=== PATIENT | female | born 1930 | race Caucasian/White ===

== ENCOUNTER 2016-11-08 14:13 | Emergency (ER) | payer OTHER ==
[~2016-11-08] VITALS: Ht 152.4 cm; Wt 44.5 kg
--- NOTE | 2016-11-08 14:15 | NUR ---
Patient to ER bed 05 to gown for evaluation. Side rails up.
[2016-11-08] MEDS ORDERED: NACL 0.9% 1,000 ML IV SCH (14:21)
[2016-11-08 14:24] VITALS: PULSE 85; RESP 18; TEMP 98.3; O2SAT 97
[2016-11-08] MEDS ORDERED: KETOROLAC TROMETHAMINE 15 MG VIAL IVP ONE (14:30)
--- NOTE | 2016-11-08 14:30 | NUR ---
ER at bedside examining patient.
--- NOTE | 2016-11-08 14:35 | NUR ---
PT AAO C/O EXCAERBATION CHRONIC KNEE. PT DENIES FALL OR TRAUMA PER REPORT. PT HAS NO KNEE SWELLING.
[2016-11-08 15:10] LABS: BASOPHILS # (AUTO) 0.1 K/uL (0.0-0.2); BASOPHILS % (AUTO) 0.7 % (0.0-2.0); EOSINOPHILS % (AUTO) 0.2 % (0.0-4.0); HEMATOCRIT 36.6 % (36-48); HEMOGLOBIN 12.1 g/dL (12.0-16.0); LYMPHOCYTES # (AUTO) 0.8 K/uL (1.0-5.5); LYMPHOCYTES % (AUTO) 8.5 % (20.5-51.5); MEAN CORPUSCULAR HEMOGLOBIN 32 pg (27-31); MEAN CORPUSCULAR HGB CONC 33 % (32-36); MEAN CORPUSCULAR VOLUME 95 fL (79.0-98.0); MONOCYTES # (AUTO) 0.4 K/uL (0.0-1.0); MONOCYTES % (AUTO) 4.1 % (1.7-9.3); NEUTROPHILS # (AUTO) 8.7 K/uL (1.8-7.7); NEUTROPHILS % (AUTO) 86.5 % (40.0-70.0); PLATELET COUNT (AUTO) 304 K/uL (130-430); RED BLOOD CELL COUNT(AUTO) 3.85 MIL/uL (4.2-6.2)
[2016-11-08 15:15] LABS: ANION GAP 4 (5-15); CALCIUM 9.4 mg/dL (8.4-11.0); CHLORIDE 101 mmol/L (98-107); CREATININE 0.36 mg/dL (0.55-1.30); GLUCOSE 90 mg/dL (70-99); POTASSIUM 4.9 mmol/L (3.5-5.1); PROTHROMBIN TIME 10.4 SECS (9.5-12.5); SODIUM SERUM 131 mmol/L (136-145); UREA NITROGEN, BLOOD 16 mg/dL (8-21)
[2016-11-08 15:20] LABS: ALANINE AMINOTRANSFERASE 30 U/L (12-78); ASPARTATE AMINOTRANSFERASE 36 U/L (10-37); TOTAL BILIRUBIN 0.7 mg/dL (0.0-1.0); TOTAL PROTEIN, SERUM 6.1 g/dL (6.4-8.3); URIC ACID 1.7 mg/dL (2.4-7.0)
--- NOTE | 2016-11-08 15:33 | NUR ---
PT TOLERATED TX WELL.
--- NOTE | 2016-11-08 16:05 | NUR ---
PT OFFERED ADMISSION.PT REFUSED X 2.PT STS" I'LL DO BETTER AT HOME. " PT TO RECEIVED GIUSEPPE WRAP PRIOR TO D/C.
[2016-11-08 16:37] VITALS: BP 152/93; PULSE 76; RESP 18; TEMP 98.4; O2SAT 95
--- NOTE | 2016-11-08 16:50 | NUR ---
Patient given written and verbal discharge instructions and verbalizes understanding. ER MD discussed with patient the results and treatment provided. Patient in stable condition. ID arm band removed. IV catheter removed intact and dressing applied, no active bleeding. No Rx given. Patient educated on pain management and to follow up with PMD. Pain Scale 0/10. Opportunity for questions provided and answered.
[2017-01-18] MEDS ORDERED: LEVO100T9 PO (23:52)
[2017-01-18] MEDS ORDERED: RANI-362 PO (23:52)
[2017-01-18] MEDS ORDERED: FLUT1DIS INH (23:52)
[2017-01-18] MEDS ORDERED: ALBU0.63 NEB (23:52)
[2017-01-18] MEDS ORDERED: ALBU90AE IH (23:52)
== END 2016-11-08 16:37 | disposition home or self-care (01) ==
LOC: SED 14:13
DX: S83.8X2A Sprain of other specified parts of left knee, initial encounter (principal); J45.909 Unspecified asthma, uncomplicated; E11.9 Type 2 diabetes mellitus without complications; E03.9 Hypothyroidism, unspecified; X58.XXXA Exposure to other specified factors, initial encounter; Y93.89 Activity, other specified; Y92.89 Other specified places as the place of occurrence of the external cause; Y99.8 Other external cause status
CPT/HCPCS: 36415; 73564; 80053; 83605; 84550; 85025; 85610; 85730; 87040; 93005; 96361; 96374; 99285; J1885; J7030

== ENCOUNTER 2016-11-18 18:42 | Inpatient (IN) | payer OTHER ==
[~2016-11-18] VITALS: Ht 149.9 cm; Wt 38.6 kg
[2016-11-18 18:42] VITALS: BP 88/50; PULSE 70; RESP 22; TEMP 97.8; O2SAT 95
--- NOTE | 2016-11-18 18:42 | NUR ---
Arrived via [facility] ambulance for abd distention, vomiting, abd is grossly distended. Placed in room 3 . Placed on cardiac sonographer, blood pressure machine and pulse oximeter. To gown for exam. Side rails up. Report given to Ashley MEJIA.
[2016-11-18] MEDS ORDERED: NACL 0.9% 1,000 ML IV SCH (18:55)
[2016-11-18] MEDS ORDERED: cefTRIAXone 1 GM IVPB PREMIX 50 ML IV ONE (19:00)
[2016-11-18] MEDS ORDERED: PIPERACILLIN/TAZO 3.375 GM in NS 50 ML IV ONE (19:00)
[2016-11-18] MEDS ORDERED: KETOROLAC TROMETHAMINE 30 MG VIAL IVP ONE (19:00)
[2016-11-18] MEDS ORDERED: NACL 0.9% 1,000 ML IV ONE (19:00)
[2016-11-18] MEDS ORDERED: ONDANSETRON HCL 4 MG/2 ML VIAL IVP ONE (19:00)
--- NOTE | 2016-11-18 19:00 | NUR ---
ER Dr. Kim at bedside examining patient.
--- NOTE | 2016-11-18 19:10 | NUR ---
Pt states that she has been having 10/10 abd pain for one day with N/V. Pt states she has not have a BM "for awhile that I cannot remember." Pt abd is distended and tender. Pt is guarding abd. Bowel sounds noted 4/4. VSS. Lung sounds clear in all lobes. Will continue to monitor via case monitor. No other injuries or complaints mentioned/noted.
[2016-11-18 19:17] LABS: BASOPHILS # (AUTO) 0.1 K/uL (0.0-0.2); BASOPHILS % (AUTO) 1.2 % (0.0-2.0); EOSINOPHILS % (AUTO) 0.5 % (0.0-4.0); HEMATOCRIT 36.5 % (36-48); HEMOGLOBIN 11.9 g/dL (12.0-16.0); LYMPHOCYTES # (AUTO) 0.6 K/uL (1.0-5.5); LYMPHOCYTES % (AUTO) 14.1 % (20.5-51.5); MEAN CORPUSCULAR HEMOGLOBIN 31 pg (27-31); MEAN CORPUSCULAR HGB CONC 33 % (32-36); MEAN CORPUSCULAR VOLUME 95 fL (79.0-98.0); MONOCYTES % (AUTO) 1.1 % (1.7-9.3); NEUTROPHILS # (AUTO) 3.6 K/uL (1.8-7.7); NEUTROPHILS % (AUTO) 83.1 % (40.0-70.0); PLATELET COUNT (AUTO) 388 K/uL (130-430); RED BLOOD CELL COUNT(AUTO) 3.85 MIL/uL (4.2-6.2); RED CELL DISTRIBUTION WIDTH 12.7 % (9.0-15.0); WHITE BLOOD COUNT (AUTO) 4.4 K/uL (4.8-10.8)
[2016-11-18 19:27] LABS: ANION GAP 5 (5-15); CALCIUM 10.4 mg/dL (8.4-11.0); CHLORIDE 99 mmol/L (98-107); CREATININE 0.55 mg/dL (0.55-1.30); GLUCOSE 137 mg/dL (70-99); INR 0.9 (0.8-1.2); POTASSIUM 3.6 mmol/L (3.5-5.1); SODIUM SERUM 130 mmol/L (136-145); UREA NITROGEN, BLOOD 19 mg/dL (8-21)
--- NOTE | 2016-11-18 19:30 | NUR ---
Blood pressure within normal limits. Dr. Kim and Dr. Seo made aware.
--- NOTE | 2016-11-18 19:30 | NUR ---
Scanner unavailable. Full name, date of , and allergies confirmed before medication administration.
[2016-11-18 19:31] LABS: ALANINE AMINOTRANSFERASE 24 U/L (12-78); AMYLASE 26 U/L (0-100); ASPARTATE AMINOTRANSFERASE 20 U/L (10-37); LIPASE 138 U/L (73-393); TOTAL BILIRUBIN 0.4 mg/dL (0.0-1.0); TOTAL PROTEIN, SERUM 5.9 g/dL (6.4-8.3)
[2016-11-18] MEDS ORDERED: PIPERACILLIN/TAZOBACTAM 3.375 GM/VIAL (ZOSYN) IV ONE (19:38)
--- NOTE | 2016-11-18 21:35 | NUR ---
Medication reconciliation completed with information provided by son. Unable to put in due to being locked out from EMR.
--- NOTE | 2016-11-18 21:45 | NUR ---
Patient will be admitted to care of Dr. Goodwin. Admitted to Telemetry unit. Will go to room 135A. Belongings list completed. Summary report printed. Report will be given at bedside.
--- NOTE | 2016-11-18 21:45 | NUR ---
Note marina in ED - 11/19/16 at 0130 by PRISCILA Patient will be admitted to care of Dr. Goodwin. Admitted to Telemetry unit. Will go to room 120A. Belongings list completed. Summary report printed. Report will be given at bedside.
[2016-11-18 22:07] VITALS: BP 88/52; PULSE 76; RESP 16; TEMP 97.4; O2SAT 93
--- NOTE | 2016-11-18 22:07 | NUR ---
Admission Note Received patient from ER with diagnosis of Partial Small Bowel Obstruction. Initial Plan of Care discussed-patient verbalized understanding. Family at bedside. Oriented to room, call light, pain management and safety.
[2016-11-18 22:40] LABS: BILIRUBIN,URINE NEGATIVE (NEGATIVE); BLOOD, URINE NEGATIVE (NEGATIVE); CLARITY/URINE SL CLOUDY (CLEAR); COLOR,URINE YELLOW (YELLOW); GLUCOSE,URINE NEGATIVE (NEGATIVE); KETONES,URINE TRACE (NEGATIVE); LEUKOCYTE ESTERASE ,URINE 1+ (NEGATIVE); NITRITE, URINE NEGATIVE (NEGATIVE); PROTEIN URINE NEGATIVE (NEGATIVE)
[2016-11-18 22:57] LABS: BACTERIA,URINE MODERATE /HPF (None Seen); RBC,URINE 0-3 /HPF (0-3); URINE AMORPHOUS URATE 2+ /HPF (None Seen)
[2016-11-18 22:58] LABS: MUCUS,URINE 2+ /LPF (None Seen)
[2016-11-18] MEDS ORDERED: ONDANSETRON HCL 4 MG/2 ML VIAL IVP PRN (23:15)
[2016-11-18] MEDS ORDERED: KETOROLAC TROMETHAMINE 15 MG VIAL IVP PRN (23:15)
--- NOTE | 2016-11-18 23:21 | NUR ---
Consult Called Reason For Consultation: SOB Person who was person notified: Carson Was consult called:[place] Consulting Physician: Byron Mcgregor Foster Care Case Manager Specialty: taper machine Addendum: 11/18/16 at 2348 by Betty Lawton [place]/ CONSULT WAS NORA
[2016-11-19] VITALS: BP 108/70; PULSE 76; RESP 16; TEMP 97.4; O2SAT 93
--- NOTE | 2016-11-19 00:04 | NUR ---
Consult Called Reason For Consultation: SBO Person who was notified: Was consult called:Y Consulting Physician:Idalmis Resendiz MD (Dr. Benedict chemical radiation technician) Product Director Specialty:GI Product Director
[2016-11-19] MEDS: D5NS 1,000 ML IV SCH ×2 (00:35→17:33)
[2016-11-19] MEDS ORDERED: PIPERACILLIN/TAZOBACTAM 3.375 GM/VIAL (ZOSYN) IV ONE (01:00)
[2016-11-19] MEDS ORDERED: FLUT1DIS INH (01:32)
[2016-11-19] MEDS ORDERED: LEVO100T9 PO (01:32)
--- NOTE | 2016-11-19 01:33 | NUR ---
Medication reconciliation completed with information provided by son. Any prior medication reconciliation on file was reviewed and corrected.
[2016-11-19] MEDS: PIPERACILLIN/TAZO 3.375/DEX-IS 50 ML IV SCH ×4 (02:07→21:18)
--- NOTE | 2016-11-19 02:59 | NUR ---
Consult called: sbo Was consult called: yes Person who was notified: Quin Consulting Physician: Migel Mitchell MD Room Designer Specialty: Ceo And President
[2016-11-19] MEDS: MORPHINE 2 MG/ML INJ. SYRINGE IVP PRN ×2 (03:18→08:17)
[2016-11-19 04:00] VITALS: BP 86/55; PULSE 78; RESP 20; TEMP 99.2; O2SAT 95
--- NOTE | 2016-11-19 04:00 | NUR ---
DOZES ON AND OFF. FORGETFUL AT TIMES. FEELS COLD, WARM BANKETS IN PLACE. SCD'S PUT IN PLACE EARLIER. REPOSITIONED AND TURNED PRN. ORAL CARE GIVEN. PLEASANT.
--- NOTE | 2016-11-19 06:00 | NUR ---
ATTEMPTING TO GET OUT OF BED. NEEDY. SCARED. REASSURED. TUCKED BACK IN BED. THANKFUL.
[2016-11-19 06:46] LABS: BASOPHILS % (AUTO) 0.1 % (0.0-2.0); EOSINOPHILS % (AUTO) 0.3 % (0.0-4.0); HEMATOCRIT 39.4 % (36-48); LYMPHOCYTES # (AUTO) 0.3 K/uL (1.0-5.5); LYMPHOCYTES % (AUTO) 5.6 % (20.5-51.5); MEAN CORPUSCULAR HEMOGLOBIN 32 pg (27-31); MEAN CORPUSCULAR HGB CONC 33 % (32-36); MEAN CORPUSCULAR VOLUME 98 fL (79.0-98.0); MONOCYTES # (AUTO) 0.3 K/uL (0.0-1.0); MONOCYTES % (AUTO) 6.2 % (1.7-9.3); NEUTROPHILS # (AUTO) 4.5 K/uL (1.8-7.7); NEUTROPHILS % (AUTO) 87.8 % (40.0-70.0); PLATELET COUNT (AUTO) 256 K/uL (130-430); RED BLOOD CELL COUNT(AUTO) 4.04 MIL/uL (4.2-6.2); WHITE BLOOD COUNT (AUTO) 5.1 K/uL (4.8-10.8)
[2016-11-19 06:58] LABS: ALANINE AMINOTRANSFERASE 20 U/L (12-78); ALBUMIN 2.3 g/dL (3.4-4.8); ANION GAP 8 (5-15); CHLORIDE 103 mmol/L (98-107); GLUCOSE 85 mg/dL (70-99); SODIUM SERUM 133 mmol/L (136-145); TOTAL BILIRUBIN 0.4 mg/dL (0.0-1.0); TOTAL PROTEIN, SERUM 4.6 g/dL (6.4-8.3); UREA NITROGEN, BLOOD 18 mg/dL (8-21)
[2016-11-19 07:04] LABS: POTASSIUM 4.1 mmol/L (3.5-5.1)
[2016-11-19 07:05] LABS: ASPARTATE AMINOTRANSFERASE 18 U/L (10-37)
[2016-11-19 08:00] VITALS: BP 90/53; PULSE 98; RESP 16; TEMP 98.3; O2SAT 99
[2016-11-19] MEDS: LEVOTHYROXINE SODIUM 0.1 MG VIAL IVP SCH (08:16)
[2016-11-19] MEDS: FAMOTIDINE PF 20 MG/2 ML VIAL IVP SCH ×2 (08:16→21:19)
--- NOTE | 2016-11-19 08:30 | NUR ---
OPENING NOTE: RECEIVED REPORT FROM NIGHT NURSE. PATIENT IS AWAKE AND ALERT. NO S/S OF DISTRESS OR SOB. PATIENT IV IS PATENT AND INFUSING. SCD'S IN PLACE. VITAL SIGNS WNL, ASSESSMENT COMPLETE. PAIN MEDICATION WAS GIVEN. PATIENT EDUCATED ON USING CALL LIGHT FOR ASSISTANCE BEFORE GETTING UP. CALL LIGHT IN REACH, BED IN LOWEST POSITION, AND WILL CONTINUE TO MONITOR.
--- NOTE | 2016-11-19 08:56 | NUR ---
Nutrition Update Silas Scale 15 noted. Pt admitted for partial SBO. Diet: NPO BMI: 17.7 kg/m2 RD to follow per nutrition care standards.
[2016-11-19] MEDS ORDERED: DIATR MEGLU/DIATRIZ SOD 30 ML SOLUTION PO ONE (08:59)
--- NOTE | 2016-11-19 10:00 | NUR ---
NOTE: PATIENT IS RESTING COMFORTABLY IN BED. NO S/S OF DISTRESS OR SOB. PATIENT IS AWAKE AND ALERT. CALL LIGHT IN REACH, BED IN LOWEST POSITION, AND WILL CONTINUE TO MONITOR.
[2016-11-19 10:16] VITALS: Ht 149.9 cm; Wt 38.6 kg
[2016-11-19 12:00] VITALS: BP 103/57; PULSE 80; RESP 15; TEMP 97.8; O2SAT 92
--- NOTE | 2016-11-19 12:00 | NUR ---
NOTE: PATIENT IS RESTING COMFORTABLY IN BED. NO S/S OF DISTRESS OR SOB. PATIENT IS AWAKE AND ALERT, BUT FORGETFUL AT TIMES. FAMILY IS AT BEDSIDE. CALL LIGHT IN REACH, BED IN LOWEST POSITION, AND WILL CONTINUE TO MONITOR.
--- NOTE | 2016-11-19 13:26 | NUR ---
PATIENT TAKEN TO RADIOLOGY
[2016-11-19] MEDS ORDERED: IOHEXOL 100 ML IV ONE (13:39)
--- NOTE | 2016-11-19 13:57 | NUR ---
PATIENT BACK FROM RADIOLOGY. SPOKE WITH DR. Nolan. HE SAID TO CALL HIM WHEN RESULTS OF CT SCAN ARE BACK.
--- NOTE | 2016-11-19 14:16 | NUR ---
NOTES ACCOMPANY PT TO CT SCAN. PT TOLERATED WELL. PT BACK INTO ROOM. IV FLUIDS RESUMED.
--- NOTE | 2016-11-19 15:40 | NUR ---
CRITICAL REPORT INFORMED DR. COLLIER OF BLOOD CULTURE REPORT OF GRAM NEGATIVE RODS. HE ORDERED LEVAQUIN 500 DAILY AND CONSULT FOR ID CONSULT WITH DR. COLIN. ORDERS NOTED AND CARRIED OUT.
--- NOTE | 2016-11-19 15:58 | NUR ---
ID Consult: for Dr. Shook, regarding gram negative rods, ordered by Dr. Ross, spoke with Elizabeth.
[2016-11-19 16:00] VITALS: BP 97/57; PULSE 81; RESP 18; TEMP 98.9; O2SAT 93
--- NOTE | 2016-11-19 16:00 | NUR ---
NOTE: PATIENT IS RESTING COMFORTABLY IN BED. NO S/S OF DISTRESS OR SOB. PATIENT IS AWAKE AND ALERT, WITH FORGETFULLNESS. FAMILY AT BEDSIDE. CALL LIGHT IN REACH, BED IN LOWEST POSITION, AND WILL CONTINUE TO MONITOR.
--- NOTE | 2016-11-19 18:35 | NUR ---
CLOSING NOTE: PATIENT IS RESTING COMFORTABLY IN BED. DR. PRATT MAKING ROUNDS. PATIENT IS AWAKE AND ALERT, WITH CONFUSION. CALL LIGHT IN REACH, BED IN LOWEST POSITION, AND WILL GIVE REPORT TO NIGHT NURSE.
--- NOTE | 2016-11-19 20:00 | NUR ---
ROUNDS PATIENT IN BED, AWAKE, ALERT, CONFUSED, VITALS STABLE, NO SIGNS OF ANY PAIN AND DISCOMFORT NOTED AT THIS TIME. ASSESSMENT DONE AND DOCUMENTED. SEE FLOWSHEET. NEEDS ATTENDED TO. PULLED OUT HER IV, REINSERTED TO HER RIGHT FOREARM G. 22. SAFETY AND FALL PRECAUTION MEASURES IN PLACED. BED IN LOW AND LOCKED POSITION. BED ALARM ON. CALL LIGHT PLACED WITH PATIENT.
--- NOTE | 2016-11-19 20:50 | NUR ---
DO. JAZLYN HOBSON SAW PATIENT WITH NEW ORDERS, WILL CONTINUE TO MONITOR.
[2016-11-19] MEDS ORDERED: LEVOFLOXACIN 500 MG/D5W 100 ML IV ONE (21:00)
[2016-11-19] MEDS ORDERED: BISACODYL 10 MG/SUPPOSITORY RC ONE (21:15)
[2016-11-20] VITALS: BP 100/63; PULSE 84; RESP 19; TEMP 98.8; O2SAT 95
--- NOTE | 2016-11-20 00:10 | NUR ---
PATIENT RESTING: Patient resting quietly. No acute distress noted. Vital signs within normal range.
--- NOTE | 2016-11-20 02:00 | NUR ---
ROUNDS PATIENT ASLEEP, NO SOB NOTED, WILL CONTINUE TO MONITOR.
[2016-11-20] MEDS: PIPERACILLIN/TAZO 3.375/DEX-IS 50 ML IV SCH ×4 (02:32→20:46)
--- NOTE | 2016-11-20 04:15 | NUR ---
PATIENT RESTING: Patient resting quietly. No acute distress noted. Vital signs within normal range.
[2016-11-20 04:19] VITALS: BP 91/54; PULSE 76; RESP 16; TEMP 98.5; O2SAT 94
--- NOTE | 2016-11-20 06:50 | NUR ---
CLOSING NOTES PATIENT AWAKE, VITALS STABLE, SAFETY MEASURES MAINTAINED, CALL LIGHT WITHIN REACH. WILL ENDORSE TO INCOMING SHIFT NURSE.
[2016-11-20 08:00] VITALS: BP 118/67; PULSE 87; RESP 18; TEMP 98.4; O2SAT 91
--- NOTE | 2016-11-20 08:00 | NUR ---
initial notes rec patient awake with periods of confusion with hob elevated. ivf infusing well on the r forearm. no infiltration noted. uses the commode at intervals and voiding freely . denies any abd pain at this time. pt close to the nurses station to monitor for fall. call light within reached. no sob noted.
[2016-11-20] MEDS: FAMOTIDINE PF 20 MG/2 ML VIAL IVP SCH ×2 (09:27→23:16)
[2016-11-20] MEDS: LEVOTHYROXINE SODIUM 0.1 MG VIAL IVP SCH (09:27)
[2016-11-20] MEDS: D5NS 1,000 ML IV SCH ×2 (09:28→13:45)
--- NOTE | 2016-11-20 10:00 | NUR ---
rounds seen by dr mosley and spoke with pt's son as well. pt in bed and not trying to get oob at this time.
--- NOTE | 2016-11-20 11:59 | NUR ---
rounds seen by dr martin and krista rizo with pt's son. no sob noted.
[2016-11-20 12:07] VITALS: BP 101/63; PULSE 67; RESP 17; TEMP 97.9; O2SAT 95
[2016-11-20] MEDS ORDERED: MAGNESIUM CITRATE 300 ML ORAL SOLUTION PO ONE (12:15)
[2016-11-20] MEDS ORDERED: GASTROGRAFIN 120 ML ONE (13:09)
--- NOTE | 2016-11-20 14:00 | NUR ---
rounds sleeping when rounds made.patient close to the nurses station. call light within reached.
[2016-11-20 16:52] VITALS: BP 110/71; PULSE 72; RESP 17; TEMP 98; O2SAT 95
--- NOTE | 2016-11-20 17:00 | NUR ---
rounds assisted to the br at intervals. bed alarmed is on. no sob noted.
--- NOTE | 2016-11-20 19:00 | NUR ---
closing notes seen by dr grossman and informed re small bowel follow through test. ludwin office machine technician will call if xray is completed then to give mg citrate. pt pulled out iv and will endorsed to [facility] nurse. pt was out back in bed , bed in low position and side rails up and locked.
--- NOTE | 2016-11-20 19:50 | NUR ---
ROUNDS PATIENT IN BED, AWAKE, ALERT, CONFUSED, VITALS STABLE. NO PAIN AND DISCOMFORT AT THIS TIME. ASSESSMENT DONE AND DOCUMENTED. SEE FLOWSHEET. NEEDS ATTENDED TO. SAFETY AND FALL PRECAUTION MEASURES IN PLACED. BED IN LOW AND LOCKED POSITION. BED ALARM ON. CALL LIGHT PLACED WITH PATIENT. WILL CONTINUE TO MONITOR.
--- NOTE | 2016-11-20 20:30 | NUR ---
MEDICATION DUE MEDICATION, MAGNESIUM CITRATE, GIVEN ORDERED AND TOLERATED WELL. WILL CONTINUE TO MONITOR.
[2016-11-20] MEDS: LEVOFLOXACIN 250 MG/D5W 50 ML IV SCH (23:17)
[2016-11-21 00:26] VITALS: BP 123/76; PULSE 79; RESP 17; TEMP 98; O2SAT 96
--- NOTE | 2016-11-21 02:53 | NUR ---
NOTES PATIENT ALWAYS TRYING TO GET OUT OF BED, TRANSFERRED TO ROOM 121B, SITTER AT THE BEDSIDE. WILL CONTINUE TO MONITOR.
[2016-11-21] MEDS: PIPERACILLIN/TAZO 3.375/DEX-IS 50 ML IV SCH ×3 (03:48→14:00)
--- NOTE | 2016-11-21 04:24 | NUR ---
PATIENT RESTING: Patient resting quietly. No acute distress noted. Vital signs within normal range.
[2016-11-21 04:55] VITALS: BP 140/76; PULSE 63; RESP 16; TEMP 97.1; O2SAT 94
--- NOTE | 2016-11-21 05:19 | NUR ---
MD DODD CALLED [facility] AT SPOKE WITH DR.AZAB GUERRERO [employer] WELF[employer] ELIGIBILITY WORKER.
--- NOTE | 2016-11-21 06:38 | NUR ---
CLOSING NOTES PATIENT AWAKE, VITALS STABLE, ALL NEEDS ATTENDED TO. HAD ANOTHER BM, MADE CLEAN AND COMFORTABLE. SITTER AT THE BEDSIDE FOR SAFETY. SAFETY MEASURES MAINTAINED. WILL ENDORSE TO INCOMING SHIFT NURSE.
[2016-11-21 07:09] LABS: BASOPHILS % (AUTO) 0.2 % (0.0-2.0); EOSINOPHILS # (AUTO) 0.1 K/uL (0.0-0.4); EOSINOPHILS % (AUTO) 0.9 % (0.0-4.0); HEMATOCRIT 33.4 % (36-48); HEMOGLOBIN 11.2 g/dL (12.0-16.0); LYMPHOCYTES # (AUTO) 0.6 K/uL (1.0-5.5); LYMPHOCYTES % (AUTO) 5.6 % (20.5-51.5); MEAN CORPUSCULAR HEMOGLOBIN 32 pg (27-31); MEAN CORPUSCULAR HGB CONC 34 % (32-36); MEAN CORPUSCULAR VOLUME 95 fL (79.0-98.0); MONOCYTES # (AUTO) 0.1 K/uL (0.0-1.0); MONOCYTES % (AUTO) 1.3 % (1.7-9.3); NEUTROPHILS # (AUTO) 9.1 K/uL (1.8-7.7); PLATELET COUNT (AUTO) 246 K/uL (130-430); RED BLOOD CELL COUNT(AUTO) 3.52 MIL/uL (4.2-6.2); RED CELL DISTRIBUTION WIDTH 13.3 % (9.0-15.0); WHITE BLOOD COUNT (AUTO) 9.9 K/uL (4.8-10.8)
[2016-11-21 07:37] LABS: ALANINE AMINOTRANSFERASE 17 U/L (12-78); ANION GAP 4 (5-15); ASPARTATE AMINOTRANSFERASE 14 U/L (10-37); CALCIUM 9.2 mg/dL (8.4-11.0); CHLORIDE 106 mmol/L (98-107); CREATININE 0.33 mg/dL (0.55-1.30); GLUCOSE 114 mg/dL (70-99); SODIUM SERUM 136 mmol/L (136-145); TOTAL BILIRUBIN 0.4 mg/dL (0.0-1.0); TOTAL PROTEIN, SERUM 4.6 g/dL (6.4-8.3); UREA NITROGEN, BLOOD 12 mg/dL (8-21)
[2016-11-21 07:42] LABS: POTASSIUM 1.9 mmol/L (3.5-5.1)
[2016-11-21 08:00] VITALS: BP 126/74; PULSE 71; RESP 18; TEMP 97.4; O2SAT 99
[2016-11-21] MEDS ORDERED: POTASSIUM CHLORIDE 60 MEQ in NS 500 ML IV ONE (08:00)
[2016-11-21] MEDS ORDERED: POTASSIUM CHLORIDE 20 MEQ TAB.PRT.SR PO ONE (08:00)
--- NOTE | 2016-11-21 08:00 | NUR ---
initial notes rec patient sleeping soundly with a direct observer at the bedside. ivf infusing well on the r forearm. no infiltration noted. resp easy and unlabored. no sob noted. bed in low position and side rails up and locked. request to use the commode and voiding freely. will continue to monitor patient.
[2016-11-21] MEDS: LEVOTHYROXINE SODIUM 0.1 MG VIAL IVP SCH (09:06)
[2016-11-21] MEDS: FAMOTIDINE PF 20 MG/2 ML VIAL IVP SCH ×2 (09:07→22:03)
[2016-11-21] MEDS: D5NS 1,000 ML IV SCH ×2 (09:09→22:03)
[2016-11-21] MEDS ORDERED: MINERAL OIL 30 ML UDC PO ONE (09:30)
--- NOTE | 2016-11-21 10:00 | NUR ---
lis ordonez started and in progress. pt was converted to tele as per dr bay. will continue to monitor patient. no sob noted.
--- NOTE | 2016-11-21 12:00 | NUR ---
rounds potassium rider in progress and luis well. no acute distress. uses the bedside commode at intervals.son at the bedside.
--- NOTE | 2016-11-21 14:00 | NUR ---
rounds sleeps at intervals and son at the bedside. no acute distress noted.
--- NOTE | 2016-11-21 16:00 | NUR ---
rounds with periods of confusion and tries to get oob. reorient patient and direct observer at bedside.
[2016-11-21 16:12] VITALS: BP 149/87; PULSE 64; RESP 20; TEMP 96.4; O2SAT 91
--- NOTE | 2016-11-21 17:26 | NUR ---
rounds seen by dr mosley and with orders.
--- NOTE | 2016-11-21 18:30 | NUR ---
closing notes no c.o pain at this time. no acute distress. bed in low position and side rails up and locked. still with a direct observer at bedside. stable needs attended.
[2016-11-21 20:03] VITALS: BP 135/72; PULSE 75; RESP 18; TEMP 97.5; O2SAT 95
--- NOTE | 2016-11-21 21:15 | NUR ---
Patient awake assist for position change D/O @ the bedside fall measures implemented bed to low position call lin with patient .
[2016-11-21] MEDS: metroNIDAZOLE 250 mg/NS 50 ML IV SCH (22:03)
[2016-11-21] MEDS: LACTOBACILLUS RHAMNOSUS GG 1 CAP CAPSULE PO SCH (22:03)
[2016-11-21] MEDS: LEVOFLOXACIN 250 MG/D5W 50 ML IV SCH (22:03)
[2016-11-21] MEDS: MORPHINE 2 MG/ML INJ. SYRINGE IVP PRN (23:20)
--- NOTE | 2016-11-21 23:25 | NUR ---
Hourly Rounding patient awake on and off skin dry warm HOB kept elevated chest movement shallow also symmetrical no acute distress assist as needed .
[2016-11-22] VITALS (9 sets, daily range): BP systolic 118–162; BP diastolic 69–91; PULSE 65–114; RESP 15–18; TEMP 96.9–99; O2SAT 94–98
--- NOTE | 2016-11-22 | NUR ---
LEVAQUIN 250 MG in D5W 50 ML no allergic reactions noted skin rash free dry warm respirations regular also unlabored .
--- NOTE | 2016-11-22 00:10 | NUR ---
MORPHINE SULFATE 1 MG IVP administer for general pain 02/02 & helpful , patient resting this hour .
--- NOTE | 2016-11-22 00:30 | NUR ---
RN NOTES: RECEIVED REPORT FROM RN ; PT IS SLEEPING ; SITTER AT BEDSIDE ; NOT IN ANY ACUTE DISTRESS; WILL CONTINUE TO MONITOR.
--- NOTE | 2016-11-22 03:00 | NUR ---
RN NOTES: PT IS SLEEPING, NOT IN ANY ACUTE DISTRESS; WILL CONTINUE TO MONITOR.
[2016-11-22] MEDS: metroNIDAZOLE 250 mg/NS 50 ML IV SCH ×3 (05:37→21:49)
--- NOTE | 2016-11-22 05:40 | NUR ---
PAGED: I PAGED DR. HOGUE @ [phone] I SPOKE WITH MATTEO HOGUE CALLED BACK @ [phone] NUMBER THAT I CALLED [phone]
--- NOTE | 2016-11-22 05:50 | NUR ---
CALLED BACK: DR HOGUE CALLED BACK , INFORMED HER THAT PTS K WAS LOW YESTERDAY AND NO LABS FOR TODAY , ORDERED BMP
[2016-11-22] MEDS: D5NS 1,000 ML IV SCH ×2 (05:53→20:40)
--- NOTE | 2016-11-22 06:28 | NUR ---
RN NOTES: PT IS AWAKE, NOT IN ANY ACUTE DISTRESS , DENIED ANY PAIN OR DISCOMFORT; WILL CONTINUE TO MONITOR PT .
--- NOTE | 2016-11-22 06:51 | NUR ---
CLOSING NOTES: PT IS AWAKE, SITTER AT BEDSIDE, NO SIGNIFICANT CHANGES IN THE CONDITION . WILL CONTINUE TO MONITOR AND WILL ENDORSE TO NEXT SHIFT NURSE.
[2016-11-22 07:09] LABS: ANION GAP 5 (5-15); CALCIUM 9.1 mg/dL (8.4-11.0); CHLORIDE 106 mmol/L (98-107); CREATININE 0.41 mg/dL (0.55-1.30); GLUCOSE 113 mg/dL (70-99); SODIUM SERUM 135 mmol/L (136-145); UREA NITROGEN, BLOOD 6 mg/dL (8-21)
--- NOTE | 2016-11-22 07:50 | NUR ---
INITIAL ROUNDS Received pt AAOx2, no s/s resp distress, no c/o pain or discomfort, no c/o GI distress. Plan of care for the day explained to pt-pt said okay then asked when her mother was coming to see her and then asked where she was at-pt confused. IVF infusing well to RFA at ordered rate with no s/s infiltration to site. BLE with SCDs in place. Pain management, skin and safety discussed-teach back done-will continue to verbalize all teachings due to pt very forgetful. Side rails up x3, bed alarm on, sitter at bedside and room across from nursing station for safety. Call light within reach.
[2016-11-22] MEDS ORDERED: IPRATROPIUM/ALBUTEROL SULFATE 3 ML AMPUL.NEB INH ONE (09:30)
[2016-11-22] MEDS: FAMOTIDINE PF 20 MG/2 ML VIAL IVP SCH ×2 (09:59→20:47)
[2016-11-22] MEDS: LEVOTHYROXINE SODIUM 0.1 MG VIAL IVP SCH (09:59)
[2016-11-22] MEDS: POTASSIUM CHLORIDE 20 MEQ/PKT PACKET PO SCH (09:59)
[2016-11-22] MEDS: LACTOBACILLUS RHAMNOSUS GG 1 CAP CAPSULE PO SCH ×2 (10:00→20:40)
[2016-11-22] MEDS: MINERAL OIL 30 ML UDC PO SCH (10:00)
--- NOTE | 2016-11-22 10:15 | NUR ---
ROUNDS Pt sitting up in bed visiting with her son, noted pt with cough-Dr. Galvan aware and breathing treatments & Robitussin ordered. No c/o pain or discomfort. Safety precautions remain in place. Sitter at bedside. Call light within reach.
--- NOTE | 2016-11-22 11:28 | NUR ---
ROUNDS/HHN Pt sitting up in bed receiving breathing treatments. No s/s resp distress, no c/o pain or discomfort. All precautions remain in place.
[2016-11-22] MEDS: guaiFENesin 200 MG/10 ML UDC PO SCH ×3 (13:24→20:40)
--- NOTE | 2016-11-22 15:00 | NUR ---
ROUNDS Pt just returned from a visit outside to enjoy the sun with her son and the sitter. Pt with no s/s resp distress, no c/o pain or discomfort. Pt appears to be anxious and irritated with her [id number] "why can't I go with you to her up?" pt reoriented to place and event. Pt just stated "fine". Sitter remains at bedside.
--- NOTE | 2016-11-22 15:55 | NUR ---
Nutrition F/U Admitting Diagnosis Partial small bowel obstruction Reviewed Pertinent Medical/Surgical Hx Patient Medical Record Medical History Comment: Asthma, cognitive impairment, hypothyroidism, severe atherosclerotic vascular disease, DJD, splenic artery aneurysm, abdominal aortic aneurysm, inguinal hernia, urinary bladder stone per MD notes Sx Hx: colon resection (2014), cholecystectomy Subjective Information Pt seen resting in bed at time of RD visit. Pt was very talkative, but may be confused. STAFF COUNSELOR/sitter at bedside reported that pt has been tolerating full liquid diet fine without any difficulty. RN reported that pt has not been eating well, but has been encouraged to drink Boost Plus oral supplement as well as try her best to eat what she can, but pt has poor appetite overall. Per EMR, PO Intakes: 35% average x4 meals. I/O: 400/0 (+400 ml) per 12 hours. Current diet is appropriate at this time. Pt is not appropriate for nutrition education Current Diet Order/Nutrition Support Full liquid x1 day Patient/Significant Other Able To Verbalize Education Provided Not Indicated Pertinent Medications dextrose/NaCl at 75 ml/hr (306 kcal/day), mineral oil, culturelle, pepcid, synthroid, levofloxacin/D5% IV, morphine, zofran Pertinent Labs Lactic acid 3.7 H (11/18/16), ALB 2 L (11/21/16), Hgb 11.2 L, Hct 33.4 L, Na 135 L, K 3 L, BUN 6 L, CRE 0.41 L, BG 113 H Height (Feet) 4 feet Height (Inches) 11.00 inches Weight (Pounds) 85 pounds Weight (Calculated Kilograms) 38.614036 kilograms Patient Weight 38.555 kg Body Mass Index 17.17 kg/m2 Usual Weight 85 lbs %UBW 100 %IBW 87 [place]/Adjusted Body Weight IBW: 98 lb/45 kg Recent Weight Change No Weight Status Underweight Gastrointestinal Symptoms None Last BM Nov 22, 2016 Food Allergies No Usual Diet At Home Regular/Unrestricted, 2 meals/day. Vitamins/Supplements: MVI Skin Integrity Comment: Silas scale: 15. No skin issues noted. Current % PO N/A NEW Estimated Energy Expenditure (kcals/day) 3209-4209 kcal/day (BEE x 1.2-1.5 for weight gain) Estimated Protein Required (g/day) 45-54 gm/day (1-1.2 gm/kg IBW for weight gain) Estimated Fluid Required (l/day) 1.2-1.4 L/day (30-35 ml/kg CBW for geriatric status) Problem/Etiology/Signs/Symptoms Underweight status related to pt report of poor appetite and inadequate PO intakes prior to arrival as evidenced by a BMI of 17.2, 87% IBW, and physical signs of malnutrition per internal audit director's physical assessment. Expected Outcomes/Goals 1. Monitor advancement of diet with goal of meeting at least 50% of estimated needs with acceptable tolerance 2. Labs trending within normal limits 3. Weight gain 4. Maintain skin integrity, improved Silas scale 5. Improved GI integrity Dietitian Recommendations * Recommend continuing full liquid diet per MD * Consider advance to soft (low-fiber/bland) diet with Boost Plus BID to provide an additional 720 kcal and 28 gm protein per MD if/when medically appropriate Follow Up Moderate Risk: F/U in 3-5 days
--- NOTE | 2016-11-22 18:22 | NUR ---
CLOSING NOTE Pt sitting up in bed talking with the sitter, no s/s resp distress, non-productive cough noted. No c/o pain or discomfort. Pt remains confused-wants to go drive her car and get her dog. Needs met, sitter at bedside. All skin and safety precautions remain in place.
--- NOTE | 2016-11-22 19:45 | NUR ---
Initial Notes Patient alert, able to make needs known. Patient denies pain at this time. No SOB noted, on room air. Denies nausea/vomiting at this time. IV site patent, flushes well, infusing fluids as ordered. Goal of pain management, GI stability and safety this shift. Call light within reach. Will continue to monitor. Addendum: 11/22/16 at 2211 by Gail Haas RN Sitter at bedside. Fall precautions maintained.
[2016-11-22] MEDS: IPRATROPIUM/ALBUTEROL SULFATE 3 ML AMPUL.NEB INH SCH (20:06)
[2016-11-22] MEDS: LEVOFLOXACIN 250 MG/D5W 50 ML IV SCH (20:40)
--- NOTE | 2016-11-22 22:11 | NUR ---
Notes Patient resting in bed, watching TV. No s/s of pain noted. No SOB noted. IV site patent, flushes well, infusing fluids as ordered. Son also at bedside. Sitter at bedside. Call light within reach. Will continue to monitor.
--- NOTE | 2016-11-23 | NUR ---
Notes Patient sleeping at this time. No s/s of pain or discomfort noted. Afebrile. IV site patent, flushes well, infusing fluids as ordered. Safety precautions maintained. Will continue to monitor.
--- NOTE | 2016-11-23 02:15 | NUR ---
Notes No s/s of pain noted. No SOB noted. IV site patent, flushes well, infusing fluids as ordered. Sitter at bedside. Call light within reach. Will continue to monitor.
[2016-11-23 04:30] VITALS: BP 126/71; PULSE 65; RESP 18; TEMP 97.9; O2SAT 93
[2016-11-23] MEDS: metroNIDAZOLE 250 mg/NS 50 ML IV SCH (05:11)
--- NOTE | 2016-11-23 06:37 | NUR ---
Closing Notes Patient denies pain at this time. No SOB noted, on room air. Denies nausea/vomiting at this time. IV site patent, flushes well, infusing fluids as ordered. Goal of pain management, GI stability and safety met. Call light within reach. Will continue to monitor.
[2016-11-23 06:59] LABS: BASOPHILS % (AUTO) 0.6 % (0.0-2.0); EOSINOPHILS # (AUTO) 0.1 K/uL (0.0-0.4); EOSINOPHILS % (AUTO) 2.2 % (0.0-4.0); HEMATOCRIT 33.2 % (36-48); HEMOGLOBIN 10.9 g/dL (12.0-16.0); LYMPHOCYTES # (AUTO) 0.7 K/uL (1.0-5.5); LYMPHOCYTES % (AUTO) 14.5 % (20.5-51.5); MEAN CORPUSCULAR HEMOGLOBIN 31 pg (27-31); MEAN CORPUSCULAR HGB CONC 33 % (32-36); MEAN CORPUSCULAR VOLUME 94 fL (79.0-98.0); MONOCYTES # (AUTO) 0.5 K/uL (0.0-1.0); MONOCYTES % (AUTO) 9.2 % (1.7-9.3); NEUTROPHILS # (AUTO) 3.6 K/uL (1.8-7.7); NEUTROPHILS % (AUTO) 73.5 % (40.0-70.0); PLATELET COUNT (AUTO) 250 K/uL (130-430); RED BLOOD CELL COUNT(AUTO) 3.52 MIL/uL (4.2-6.2); RED CELL DISTRIBUTION WIDTH 12.9 % (9.0-15.0); WHITE BLOOD COUNT (AUTO) 4.9 K/uL (4.8-10.8)
[2016-11-23 07:28] LABS: ALANINE AMINOTRANSFERASE 14 U/L (12-78); ALBUMIN 1.8 g/dL (3.4-4.8); ANION GAP 4 (5-15); ASPARTATE AMINOTRANSFERASE 10 U/L (10-37); CALCIUM 8.7 mg/dL (8.4-11.0); CHLORIDE 107 mmol/L (98-107); CREATININE 0.25 mg/dL (0.55-1.30); GLUCOSE 99 mg/dL (70-99); POTASSIUM 3.2 mmol/L (3.5-5.1); SODIUM SERUM 136 mmol/L (136-145); TOTAL BILIRUBIN 0.3 mg/dL (0.0-1.0); TOTAL PROTEIN, SERUM 4.3 g/dL (6.4-8.3); UREA NITROGEN, BLOOD 1 mg/dL (8-21)
[2016-11-23 07:45] VITALS: BP 155/103; PULSE 68; PULSE 79; RESP 20; TEMP 98.7; TEMP 99; O2SAT 95
--- NOTE | 2016-11-23 07:45 | NUR ---
INITIAL ROUNDS Received pt AAOx2, forgetful at times, no s/s resp distress-continues to have non-productive cough, no c/o pain or discomfort, no c/o GI distress. Pt encouraged to eat > 50% of her meals-pt stated she would try. Plan of care for the day explained to pt-pt stated okay, will continue to reinforce plan of care throughout the day. IVF infusing well to RFA at ordered rate with no s/s infiltration to site. BLE with SCDs in place. Pain management, skin and safety discussed-teach back done-will continue to verbalize all teachings due to pt very forgetful. Side rails up x3, bed alarm on, sitter at bedside and room across from nursing station for safety. Call light within reach.
[2016-11-23] MEDS: guaiFENesin 200 MG/10 ML UDC PO SCH ×2 (09:23→13:42)
[2016-11-23] MEDS: POTASSIUM CHLORIDE 20 MEQ/PKT PACKET PO SCH (09:23)
[2016-11-23] MEDS: LACTOBACILLUS RHAMNOSUS GG 1 CAP CAPSULE PO SCH (09:24)
[2016-11-23] MEDS: MINERAL OIL 30 ML UDC PO SCH (09:24)
[2016-11-23] MEDS: LEVOTHYROXINE SODIUM 0.1 MG VIAL IVP SCH (09:24)
[2016-11-23] MEDS: FAMOTIDINE PF 20 MG/2 ML VIAL IVP SCH (09:24)
--- NOTE | 2016-11-23 10:15 | NUR ---
ROUNDS Pt sitting up in bed with no s/s resp distress, continues to have sporadic cough. No c/o pain or discomfort. Sitter remains at bedside.
[2016-11-23] MEDS: IPRATROPIUM/ALBUTEROL SULFATE 3 ML AMPUL.NEB INH SCH ×2 (11:02→13:16)
[2016-11-23 11:52] VITALS: BP 141/79; PULSE 74; RESP 18; TEMP 99.1; O2SAT 96
[2016-11-23] MEDS: D5NS 1,000 ML IV SCH (13:43)
--- NOTE | 2016-11-23 13:45 | NUR ---
ROUNDS Pt assisted to BSC by DRUM FILLER, pt voided. Pt with no c/o SOB, no s/s resp distress, no c/o pain or discomfort. Pt's son at bedside. Sitter at bedside.
[2016-11-23] MEDS ORDERED: POTASSIUM CHLORIDE 20 MEQ TAB.PRT.SR PO ONE (14:00)
[2016-11-23 14:19] VITALS: BP 141/79; PULSE 74; RESP 18; TEMP 99.1; O2SAT 96
--- NOTE | 2016-11-23 14:42 | NUR ---
IV D/C, CATHETER INTACT. NO SIGNS OF BLEEDING. PT TOLERATED WELL.
[2016-11-23] MEDS ORDERED: LEVO500T20 PO (14:46)
[2016-11-23] MEDS ORDERED: METR500T PO (14:47)
[2016-11-23] MEDS ORDERED: MINE25OI3 PO (14:49)
[2016-11-23] MEDS ORDERED: DOCU-144 PO (14:50)
--- NOTE | 2016-11-23 15:17 | NUR ---
ARRANGED WITH HCP AFTER HOURS FOR HOME HEALTH SERVICE. SPOKE WITH INVESTMENT BANKER JUVENAL. FAXED PAPER [employer]KS AND WAS REFERRED TO DESIGN SPECIALIST PRINCE. PRINCE GAVE TENDER CARE THE HOME [facility]Y TEL # [phone]. HOME HEALTH WILL CONTACT PATIENT TOMORROW 11/24/16 FOR THE INTIAL VISIT ON 11/25/16
--- NOTE | 2016-11-23 15:20 | NUR ---
PATIENT DISCHARGED Pt & pt's son Ry given medication reconciliation form and D/C instructions. [facility] to arrange lab draw for Electrolyte monitoring as ordered by MD. Exit Care explained & provided. Pt verbalized understanding. MD discussed with pt & pt's son the results and treatment provided. Patient in stable condition, ID band removed. IV catheter removed, intact and dressing applied, no active bleeding. Rx of Flagyl, Levaquin, Mineral Oil & Colace given. Pt/pt's son educated on pain management. All belongings sent with pt. Pt left floor via wheelchair to private vehicle in no distress.
--- NOTE | 2016-12-01 12:23 | NUR ---
Discharge Follow Up Phone Calls: Drop Board Man called and left voice mails for pt ([phone]) on 11/27/16 and 11/28/16. ENGINEERING SURVEYOR called pt today and pt's son, Ry, answered the phone. Pt's son states that pt is doing well; pt's prescriptions have been filled; there are no questions regarding discharge or medication instructions; pt has already followed up with PCP and has another appointment this week; pt received first visit from [facility] on 11/24/16. Pt's son did not express any other needs or concerns and denied the need for additional follow up at this time. No further follow up phone calls required at this time.
[2017-01-18] MEDS ORDERED: LEVO100T9 PO (23:52)
[2017-01-18] MEDS ORDERED: ALBU90AE IH (23:52)
[2017-01-18] MEDS ORDERED: RANI-362 PO (23:52)
[2017-01-18] MEDS ORDERED: ALBU0.63 NEB (23:52)
[2017-01-18] MEDS ORDERED: FLUT1DIS INH (23:52)
== END 2016-11-23 15:20 | disposition home health service (06) | DRG 871 ==
LOC: SED 18:42 → MERGE 21:26 → STU 21:26 → SMU 11-19 20:37 → STU 11-21 08:00 → SMU 11-22 10:23
PROVIDERS: ADMIT Internal Medicine Hospice and Palliative Medicine
DX: A41.50 Gram-negative sepsis, unspecified (principal); G93.41 Metabolic encephalopathy; K56.60 Unspecified intestinal obstruction; N39.0 Urinary tract infection, site not specified; R18.8 Other ascites; K55.9 Vascular disorder of intestine, unspecified; E03.9 Hypothyroidism, unspecified; N21.0 Calculus in bladder; M19.90 Unspecified osteoarthritis, unspecified site; I10 Essential (primary) hypertension; F03.90 Unspecified dementia, unspecified severity, without behavioral disturbance, psychotic disturbance, mood disturbance, and anxiety; J45.909 Unspecified asthma, uncomplicated; E87.6 Hypokalemia; B96.20 Unspecified Escherichia coli [E. coli] as the cause of diseases classified elsewhere; Z90.49 Acquired absence of other specified parts of digestive tract; Z82.49 Family history of ischemic heart disease and other diseases of the circulatory system; Z88.8 Allergy status to other drugs, medicaments and biological substances
CPT/HCPCS: 36415; 71010; 74000-TC; 74250-TC; 76705; 80048; 80053; 81000-TC; 82150-TC; 83605; 83690-TC; 84484; 85025; 85610-TC; 85730-TC; 87040-TC; 87086; 87186-TC; 93005; 94640; 96361; 96365; 96375; 99285; J0696; J1885; J1956; J2270; J2405; J2543; J3480; J3490; J7030; J7040; J7042; J7060; Q9963; Q9964; Q9967

== ENCOUNTER 2018-06-28 20:34 | Emergency (ER) | payer OTHER ==
[~2018-06-28] VITALS: Ht 147.3 cm; Wt 40.8 kg
[~2018-06-28 20:34] MED LIST: ALBU90AE IH; DOCU-144 PO; FLUT1DIS INH; LEVO100T9 PO; LEVO500T20 PO; METR500T PO; MINE25OI3 PO; RANI-362 PO
[2018-06-28 21:22] VITALS: BP_SYST 111
[2018-06-28] MEDS ORDERED: LACTULOSE 20 GM/30 ML UDC PO ONE (23:15)
[2018-06-28 23:25] VITALS: BP_SYST 122
== END 2018-06-28 23:25 | disposition home or self-care (01) ==
LOC: SED 20:34
DX: K59.00 Constipation, unspecified (principal); J45.909 Unspecified asthma, uncomplicated; E11.9 Type 2 diabetes mellitus without complications; E03.9 Hypothyroidism, unspecified; Z88.8 Allergy status to other drugs, medicaments and biological substances; Z79.899 Other long term (current) drug therapy
CPT/HCPCS: 74018; 99283

== ENCOUNTER 2018-07-26 21:29 | Inpatient (IN) | payer OTHER ==
[~2018-07-26] VITALS: Ht 149.9 cm; Wt 39.9 kg
[2018-07-26 21:29] VITALS: BP_SYST 112
[2018-07-26] MEDS ORDERED: ONDANSETRON HCL 4 MG/2 ML VIAL IVP ONE (22:00)
[2018-07-26 22:21] LABS: BASOPHILS % (AUTO) 0.3 % (0.0-2.0); EOSINOPHILS # (AUTO) 0.1 K/uL (0.0-0.4); EOSINOPHILS % (AUTO) 0.7 % (0.0-4.0); HEMATOCRIT 36.6 % (36-48); HEMOGLOBIN 12.1 g/dL (12.0-16.0); LYMPHOCYTES # (AUTO) 1.5 K/uL (1.0-5.5); LYMPHOCYTES % (AUTO) 9.9 % (20.5-51.5); MEAN CORPUSCULAR HEMOGLOBIN 31 pg (27-31); MEAN CORPUSCULAR HGB CONC 33 % (32-36); MEAN CORPUSCULAR VOLUME 94 fL (79.0-98.0); MONOCYTES # (AUTO) 0.8 K/uL (0.0-1.0); MONOCYTES % (AUTO) 5.4 % (1.7-9.3); NEUTROPHILS # (AUTO) 12.4 K/uL (1.8-7.7); NEUTROPHILS % (AUTO) 83.7 % (40.0-70.0); PLATELET COUNT (AUTO) 311 K/uL (130-430); RED BLOOD CELL COUNT(AUTO) 3.89 MIL/uL (4.2-6.2); RED CELL DISTRIBUTION WIDTH 14.3 % (9.0-15.0); WHITE BLOOD COUNT (AUTO) 14.8 K/uL (4.8-10.8)
[2018-07-26 22:26] LABS: ANION GAP 8 (5-15); CALCIUM 10.2 mg/dL (8.4-11.0); CHLORIDE 101 mmol/L (98-107); CREATININE 0.56 mg/dL (0.55-1.30); GLUCOSE 146 mg/dL (70-99); POTASSIUM 3.6 mmol/L (3.5-5.1); SODIUM SERUM 134 mmol/L (136-145); UREA NITROGEN, BLOOD 17 mg/dL (8-21)
[2018-07-26 22:32] LABS: ALANINE AMINOTRANSFERASE 26 U/L (12-78); ALBUMIN 3.2 g/dL (3.4-4.8); ASPARTATE AMINOTRANSFERASE 20 U/L (10-37); LIPASE 119 U/L (73-393); TOTAL BILIRUBIN 0.3 mg/dL (0.0-1.0)
[2018-07-26] MEDS ORDERED: cefTRIAXone 1 GM IVPB PREMIX 50 ML IV ONE (23:00)
[2018-07-26 23:25] LABS: BILIRUBIN,URINE NEGATIVE (NEGATIVE); BLOOD, URINE NEGATIVE (NEGATIVE); CLARITY/URINE CLEAR (CLEAR); COLOR,URINE YELLOW (YELLOW); GLUCOSE,URINE NEGATIVE (NEGATIVE); KETONES,URINE 1+ (NEGATIVE); LEUKOCYTE ESTERASE ,URINE NEGATIVE (NEGATIVE); NITRITE, URINE NEGATIVE (NEGATIVE); PH,URINE 5.5 (5.0-8.0); PROTEIN URINE 1+ (NEGATIVE)
[2018-07-26 23:48] LABS: BACTERIA,URINE MODERATE /HPF (None Seen)
[2018-07-26 23:49] LABS: FINE GRANULAR CASTS,URINE 0-10 /LPF (None Seen); MUCUS,URINE 3+ /LPF (None Seen)
[2018-07-27] VITALS (8 sets, daily range): BP systolic 100–124
[2018-07-27 12:33] LABS: BASOPHILS % (AUTO) 0.6 % (0.0-2.0); EOSINOPHILS % (AUTO) 0.3 % (0.0-4.0); LYMPHOCYTES % (AUTO) 13.3 % (20.5-51.5); MEAN CORPUSCULAR HEMOGLOBIN 31 pg (27-31); MEAN CORPUSCULAR HGB CONC 33 % (32-36); MEAN CORPUSCULAR VOLUME 93 fL (79.0-98.0); MONOCYTES # (AUTO) 0.6 K/uL (0.0-1.0); MONOCYTES % (AUTO) 8.2 % (1.7-9.3); NEUTROPHILS # (AUTO) 5.8 K/uL (1.8-7.7); NEUTROPHILS % (AUTO) 77.6 % (40.0-70.0); PLATELET COUNT (AUTO) 243 K/uL (130-430); RED BLOOD CELL COUNT(AUTO) 3.22 MIL/uL (4.2-6.2); RED CELL DISTRIBUTION WIDTH 14.6 % (9.0-15.0); WHITE BLOOD COUNT (AUTO) 7.4 K/uL (4.8-10.8)
[2018-07-27] MEDS: LEVOFLOXACIN 500 MG TABLET PO SCH (22:16)
[2018-07-27] MEDS: ACETAMINOPHEN 325 MG TABLET PO PRN (23:34)
[2018-07-28 07:46] VITALS: BP_SYST 107
[2018-07-28] MEDS: ACETAMINOPHEN 325 MG TABLET PO PRN (08:40)
[2018-07-28 12:00] VITALS: BP_SYST 108
[2018-07-28] MEDS: VANCOMYCIN HCL 750 MG in NS 250 ML IV SCH (12:44)
[2018-07-28 16:01] VITALS: BP_SYST 121
[2018-07-28 20:00] VITALS: BP_SYST 126
[2018-07-28] MEDS: LEVOFLOXACIN 500 MG TABLET PO SCH (20:48)
[2018-07-28] MEDS ORDERED: LEVOFLOXACIN 500 MG TABLET PO SCH (21:00)
[2018-07-29 01:40] VITALS: BP_SYST 128
[2018-07-29] MEDS: ACETAMINOPHEN 325 MG TABLET PO PRN ×3 (04:34→16:36)
[2018-07-29 07:48] VITALS: BP_SYST 112
[2018-07-29] MEDS: VANCOMYCIN HCL 750 MG in NS 250 ML IV SCH (11:23)
[2018-07-29 12:00] VITALS: BP_SYST 110
[2018-07-29 16:00] VITALS: BP_SYST 105
[2018-07-29] MEDS ORDERED: LORazepam 2 MG/ML VIAL IVP PRN (18:00)
[2018-07-29 20:00] VITALS: BP_SYST 111
[2018-07-29] MEDS: LEVOFLOXACIN 500 MG TABLET PO SCH (20:58)
[2018-07-30 00:15] VITALS: BP_SYST 110
[2018-07-30] MEDS: ACETAMINOPHEN 325 MG TABLET PO PRN (02:21)
[2018-07-30 08:00] VITALS: BP_SYST 124
[2018-07-30] MEDS: VANCOMYCIN HCL 750 MG in NS 250 ML IV SCH (11:48)
[2018-07-30 12:00] VITALS: BP_SYST 126
[2018-07-30 16:00] VITALS: BP_SYST 113
[2018-07-30 16:36] VITALS: BP_SYST 127
== END 2018-07-30 18:47 | DRG 871 ==
LOC: SED 21:29 → SMU 23:02
PROVIDERS: ADMIT Internal Medicine Hospice and Palliative Medicine; ATTEND Internal Medicine Hospice and Palliative Medicine
DX: A41.2 Sepsis due to unspecified staphylococcus (principal); J18.9 Pneumonia, unspecified organism; N39.0 Urinary tract infection, site not specified; E03.9 Hypothyroidism, unspecified; F03.90 Unspecified dementia, unspecified severity, without behavioral disturbance, psychotic disturbance, mood disturbance, and anxiety; I10 Essential (primary) hypertension; J45.909 Unspecified asthma, uncomplicated; M25.559 Pain in unspecified hip; Z88.8 Allergy status to other drugs, medicaments and biological substances; Z79.899 Other long term (current) drug therapy
CPT/HCPCS: 36415; 71045; 73521; 80053; 81000-TC; 82550-TC; 83605; 83690-TC; 83880; 84484; 85025; 87040-TC; 87086; 93005; 93306; 96365; 96375; 97110-GP; 97116-GP; 97530-GP; 99285; J0696; J2060; J2405; J3370; J7050

== ENCOUNTER 2018-08-17 00:06 | Inpatient (IN) | payer OTHER ==
[~2018-08-17] VITALS: Ht 147.3 cm; Wt 46.7 kg
[2018-08-17] VITALS (7 sets, daily range): BP systolic 104–127
[~2018-08-17 00:06] MED LIST changes: -DOCU-144 PO; -LEVO500T20 PO; -METR500T PO; -MINE25OI3 PO; -RANI-362 PO
[2018-08-17] MEDS ORDERED: NS 500 ML IV ONE (00:30)
[2018-08-17] MEDS ORDERED: LACT10SO6 PO (00:42)
[2018-08-17] MEDS ORDERED: AMOX-423 PO (00:42)
[2018-08-17] MEDS ORDERED: ONDA4TAB5 PO (00:42)
[2018-08-17 01:20] LABS: BASOPHILS # (AUTO) 0.1 K/uL (0.0-0.2); BASOPHILS % (AUTO) 1.3 % (0.0-2.0); EOSINOPHILS % (AUTO) 0.7 % (0.0-4.0); HEMATOCRIT 36.8 % (36-48); HEMOGLOBIN 12.2 g/dL (12.0-16.0); LYMPHOCYTES % (AUTO) 14.6 % (20.5-51.5); MEAN CORPUSCULAR HEMOGLOBIN 31 pg (27-31); MEAN CORPUSCULAR HGB CONC 33 % (32-36); MEAN CORPUSCULAR VOLUME 94 fL (79.0-98.0); MONOCYTES # (AUTO) 0.6 K/uL (0.0-1.0); NEUTROPHILS # (AUTO) 5.3 K/uL (1.8-7.7); NEUTROPHILS % (AUTO) 74.4 % (40.0-70.0); PLATELET COUNT (AUTO) 441 K/uL (130-430); RED CELL DISTRIBUTION WIDTH 15.8 % (9.0-15.0)
[2018-08-17 01:26] LABS: BILIRUBIN,URINE NEGATIVE (NEGATIVE); CLARITY/URINE CLEAR (CLEAR); COLOR,URINE YELLOW (YELLOW); GLUCOSE,URINE NEGATIVE (NEGATIVE); KETONES,URINE 1+ (NEGATIVE); LEUKOCYTE ESTERASE ,URINE 3+ (NEGATIVE); NITRITE, URINE NEGATIVE (NEGATIVE); PROTEIN URINE NEGATIVE (NEGATIVE)
[2018-08-17 01:28] LABS: CALCIUM 9.7 mg/dL (8.4-11.0); CHLORIDE 89 mmol/L (98-107); CREATININE 0.49 mg/dL (0.55-1.30); GLUCOSE 97 mg/dL (70-99); SODIUM SERUM 125 mmol/L (136-145); UREA NITROGEN, BLOOD 8 mg/dL (8-21)
[2018-08-17 01:30] LABS: INR 1.1 (0.8-1.2); PROTHROMBIN TIME 11.2 SECS (9.5-12.5)
[2018-08-17 01:32] LABS: BLOOD, URINE TRACE (NEGATIVE)
[2018-08-17 01:34] LABS: BACTERIA,URINE FEW /HPF (None Seen); WBC,URINE 20-50 /HPF (0-3)
[2018-08-17 01:41] LABS: ALANINE AMINOTRANSFERASE 22 U/L (12-78); ANION GAP 10 (5-15); ASPARTATE AMINOTRANSFERASE 27 U/L (10-37); TOTAL BILIRUBIN 1.2 mg/dL (0.0-1.0)
[2018-08-17 01:45] LABS: POTASSIUM 2.9 mmol/L (3.5-5.1)
[2018-08-17] MEDS ORDERED: LEVOFLOXACIN 500 MG/D5W 100 ML IV ONE (01:45)
[2018-08-17] MEDS ORDERED: ONDANSETRON HCL 4 MG/2 ML VIAL IVP ONE (01:45)
[2018-08-17] MEDS ORDERED: KETOROLAC TROMETHAMINE 30 MG VIAL IVP ONE (01:45)
[2018-08-17] MEDS ORDERED: POTASSIUM CHLORIDE 20 MEQ TAB.PRT.SR PO ONE (01:45)
[2018-08-17] MEDS ORDERED: METOCLOPRAMIDE HCL 10 MG/2 ML VIAL IVP ONE (02:30)
[2018-08-17] MEDS ORDERED: DIPHENHYDRAMINE INJ 50 MG/ML VIAL IVP ONE (02:30)
[2018-08-17] MEDS ORDERED: KCL 40 mEq in 100 mL (PREMIX) 100 ML IV ONE (02:30)
[2018-08-17] MEDS ORDERED: PIPERACILLIN/TAZO 3.375 GM in NS 50 ML IV ONE (02:45)
[2018-08-17] MEDS ORDERED: KCL 20 mEq in 100 mL (PREMIX) 100 ML IV ONE (03:15)
[2018-08-17] MEDS ORDERED: KCL 20 mEq in 100 mL (PREMIX) 200 ML IV ONE (03:18)
[2018-08-17] MEDS ORDERED: PIPERACILLIN/TAZOBACTAM 3.375 GM/VIAL (ZOSYN) IV ONE (03:28)
[2018-08-17] MEDS ORDERED: ONDANSETRON HCL 4 MG/2 ML VIAL IVP PRN (04:00)
[2018-08-17] MEDS ORDERED: MORPHINE 4 MG/ML INJ. SYRINGE IVP PRN ×2 (04:00)
[2018-08-17] MEDS: NACL 0.9% 1,000 ML IV SCH ×2 (05:10→21:23)
[2018-08-17] MEDS ORDERED: IPRATROPIUM BROM 0.5 MG/2.5 ML VIAL.NEB (ATROVENT) INH PRN (09:15)
[2018-08-17] MEDS ORDERED: ALBUTEROL SULFATE 0.083% 2.5 MG/3 ML VIAL.NEB INH PRN (09:15)
[2018-08-17] MEDS ORDERED: AZITHROMYCIN 500 MG in NS 250 ML IV SCH (09:15)
[2018-08-17 09:52] LABS: ANION GAP 10 (5-15); BASOPHILS % (AUTO) 0.5 % (0.0-2.0); CALCIUM 9.4 mg/dL (8.4-11.0); CHLORIDE 95 mmol/L (98-107); CREATININE 0.38 mg/dL (0.55-1.30); EOSINOPHILS % (AUTO) 0.8 % (0.0-4.0); GLUCOSE 86 mg/dL (70-99); HEMATOCRIT 33.5 % (36-48); HEMOGLOBIN 11.1 g/dL (12.0-16.0); LYMPHOCYTES # (AUTO) 0.5 K/uL (1.0-5.5); LYMPHOCYTES % (AUTO) 16.2 % (20.5-51.5); MEAN CORPUSCULAR HEMOGLOBIN 31 pg (27-31); MEAN CORPUSCULAR HGB CONC 33 % (32-36); MEAN CORPUSCULAR VOLUME 94 fL (79.0-98.0); MONOCYTES # (AUTO) 0.3 K/uL (0.0-1.0); MONOCYTES % (AUTO) 9.1 % (1.7-9.3); NEUTROPHILS # (AUTO) 2.4 K/uL (1.8-7.7); PLATELET COUNT (AUTO) 412 K/uL (130-430); POTASSIUM 3.3 mmol/L (3.5-5.1); RED BLOOD CELL COUNT(AUTO) 3.55 MIL/uL (4.2-6.2); RED CELL DISTRIBUTION WIDTH 15.8 % (9.0-15.0); SODIUM SERUM 130 mmol/L (136-145); UREA NITROGEN, BLOOD 7 mg/dL (8-21); WHITE BLOOD COUNT (AUTO) 3.2 K/uL (4.8-10.8)
[2018-08-17 09:59] LABS: ALANINE AMINOTRANSFERASE 18 U/L (12-78); ALBUMIN 2.5 g/dL (3.4-4.8); ASPARTATE AMINOTRANSFERASE 24 U/L (10-37)
[2018-08-17] MEDS ORDERED: BUDESONIDE 0.5 MG/2 ML AMPUL.NEB INH ONE (10:30)
[2018-08-17 12:37] LABS: NEUTROPHILS % (AUTO) 73.4 % (40.0-70.0)
[2018-08-17] MEDS: IPRATROPIUM BROM 0.5 MG/2.5 ML VIAL.NEB (ATROVENT) INH SCH ×2 (13:14→19:30)
[2018-08-17] MEDS: ALBUTEROL SULFATE 0.083% 2.5 MG/3 ML VIAL.NEB INH SCH ×2 (13:14→19:30)
[2018-08-17] MEDS: LEVOFLOXACIN 250 MG/D5W 50 ML IV SCH (13:37)
[2018-08-17] MEDS: cefTRIAXone 1 GM in D5W 50 ML IV SCH (14:35)
[2018-08-17] MEDS ORDERED: DOCUSATE SODIUM 100 MG CAPSULE PO PRN (16:15)
[2018-08-17] MEDS: BUDESONIDE 0.5 MG/2 ML AMPUL.NEB INH SCH (19:44)
[2018-08-17] MEDS ORDERED: FLUTICASONE 100 mCg/SALMETEROL 50 mCg DISKUS W.DEV INH SCH (21:00)
[2018-08-18 00:03] VITALS: BP_SYST 133
[2018-08-18] MEDS: ALBUTEROL SULFATE 0.083% 2.5 MG/3 ML VIAL.NEB INH SCH ×4 (01:10→19:45)
[2018-08-18] MEDS: IPRATROPIUM BROM 0.5 MG/2.5 ML VIAL.NEB (ATROVENT) INH SCH ×4 (01:11→19:45)
[2018-08-18] MEDS: LEVOTHYROXINE SODIUM 0.1 MG TABLET PO SCH (06:09)
[2018-08-18] MEDS: BUDESONIDE 0.5 MG/2 ML AMPUL.NEB INH SCH ×2 (07:00→19:45)
[2018-08-18 07:35] LABS: BILIRUBIN,DIRECT 0.4 mg/dL (0.0-0.3); TOTAL BILIRUBIN 0.8 mg/dL (0.0-1.0)
[2018-08-18 08:00] VITALS: BP_SYST 133
[2018-08-18] MEDS: cefTRIAXone 1 GM in D5W 50 ML IV SCH (08:50)
[2018-08-18 09:15] LABS: ANION GAP 10 (5-15); CALCIUM 9.9 mg/dL (8.4-11.0); CHLORIDE 96 mmol/L (98-107); GLUCOSE 60 mg/dL (70-99); SODIUM SERUM 130 mmol/L (136-145); UREA NITROGEN, BLOOD 3 mg/dL (8-21)
[2018-08-18 09:16] LABS: CREATININE 0.38 mg/dL (0.55-1.30)
[2018-08-18 09:17] LABS: BASOPHILS % (AUTO) 0.9 % (0.0-2.0); EOSINOPHILS # (AUTO) 0.1 K/uL (0.0-0.4); EOSINOPHILS % (AUTO) 1.6 % (0.0-4.0); HEMATOCRIT 39.7 % (36-48); HEMOGLOBIN 12.6 g/dL (12.0-16.0); LYMPHOCYTES # (AUTO) 0.7 K/uL (1.0-5.5); LYMPHOCYTES % (AUTO) 16.4 % (20.5-51.5); MEAN CORPUSCULAR HEMOGLOBIN 30 pg (27-31); MEAN CORPUSCULAR HGB CONC 32 % (32-36); MEAN CORPUSCULAR VOLUME 96 fL (79.0-98.0); MONOCYTES # (AUTO) 0.3 K/uL (0.0-1.0); MONOCYTES % (AUTO) 7.2 % (1.7-9.3); NEUTROPHILS # (AUTO) 3.2 K/uL (1.8-7.7); PLATELET COUNT (AUTO) 533 K/uL (130-430); RED BLOOD CELL COUNT(AUTO) 4.15 MIL/uL (4.2-6.2); RED CELL DISTRIBUTION WIDTH 15.6 % (9.0-15.0); WHITE BLOOD COUNT (AUTO) 4.3 K/uL (4.8-10.8)
[2018-08-18] MEDS: NACL 0.9% 1,000 ML IV SCH (09:36)
[2018-08-18 09:54] LABS: NEUTROPHILS % (AUTO) 73.9 % (40.0-70.0)
[2018-08-18] MEDS: LEVOFLOXACIN 250 MG/D5W 50 ML IV SCH (11:09)
[2018-08-18] MEDS ORDERED: POTASSIUM CHLORIDE 20 MEQ TAB.PRT.SR PO ONE (11:45)
[2018-08-18 12:35] VITALS: BP_SYST 127
[2018-08-18] MEDS ORDERED: GASTROGRAFIN 120 ML ONE (15:49)
[2018-08-18 17:15] VITALS: BP_SYST 129
[2018-08-18 21:00] VITALS: BP_SYST 125
[2018-08-18 23:36] VITALS: BP_SYST 148
[2018-08-19] MEDS: IPRATROPIUM BROM 0.5 MG/2.5 ML VIAL.NEB (ATROVENT) INH SCH ×2 (01:25→07:18)
[2018-08-19] MEDS: ALBUTEROL SULFATE 0.083% 2.5 MG/3 ML VIAL.NEB INH SCH ×2 (01:25→07:17)
[2018-08-19] MEDS: NACL 0.9% 1,000 ML IV SCH (06:54)
[2018-08-19] MEDS: LEVOTHYROXINE SODIUM 0.1 MG TABLET PO SCH (06:55)
[2018-08-19] MEDS: BUDESONIDE 0.5 MG/2 ML AMPUL.NEB INH SCH (07:18)
[2018-08-19 08:09] VITALS: BP_SYST 117
[2018-08-19] MEDS: cefTRIAXone 1 GM in D5W 50 ML IV SCH (09:02)
[2018-08-19] MEDS: LEVOFLOXACIN 250 MG/D5W 50 ML IV SCH (11:09)
[2018-08-19 12:19] VITALS: BP_SYST 119
[2018-08-19] MEDS ORDERED: LEVO250T2 PO (14:01)
[2018-08-19 14:32] VITALS: BP_SYST 119
== END 2018-08-19 14:55 | disposition home or self-care (01) | DRG 178 ==
LOC: SED 00:06 → SMU 03:51
PROVIDERS: ADMIT Internal Medicine Hospice and Palliative Medicine; ATTEND Internal Medicine Hospice and Palliative Medicine
DX: J69.0 Pneumonitis due to inhalation of food and vomit (principal); E87.1 Hypo-osmolality and hyponatremia; N39.0 Urinary tract infection, site not specified; E87.6 Hypokalemia; E03.9 Hypothyroidism, unspecified; F03.90 Unspecified dementia, unspecified severity, without behavioral disturbance, psychotic disturbance, mood disturbance, and anxiety; I10 Essential (primary) hypertension; Z87.81 Personal history of (healed) traumatic fracture; Z88.8 Allergy status to other drugs, medicaments and biological substances; Z79.899 Other long term (current) drug therapy
CPT/HCPCS: 36415; 71045; 74250-TC; 80048; 80053; 80076; 81000-TC; 82977-TC; 83605; 84484; 85025; 85610-TC; 85730-TC; 87040-TC; 87081; 87086; 93005; 94640; 94760; 96365; 96375; 99285; J0696; J1200; J1885; J1956; J2405; J2543; J2765; J3480; J7030; J7040; J7060; J7613; J7626; Q9963

== ENCOUNTER 2018-09-21 16:23 | Inpatient (IN) | payer OTHER ==
[~2018-09-21] VITALS: Ht 147.3 cm; Wt 46.7 kg
[2018-09-21 01:15] VITALS: BP_SYST 133
[~2018-09-21 16:23] MED LIST changes: +LACT10SO6 PO; +LEVO250T2 PO; +ONDA4TAB5 PO
[2018-09-21 16:25] VITALS: BP_SYST 138
--- NOTE | 2018-09-21 16:30 | NUR ---
ER at bedside examining patient.
--- NOTE | 2018-09-21 16:33 | NUR ---
Arrived via S ambulance S/P trip and fall on carpet. Patient recieved morphine 4mg IVP enroute wihout relief of pain in right wrist (with deformity) and right hip pain. Patient is currently screaming for water refractory to education regarding need for NPO status. Placed in room 4. Placed on cardiac cath lab manager, blood pressure machine and pulse oximeter. To gown for exam. Side rails up. Report given to Emily MEJIA.
--- NOTE | 2018-09-21 16:45 | NUR ---
patient AOx2 arriving from home via bls status post mechanical fall son at bedside. son stated patient has a history of dementia and has a shuffled gait. Son stated she was walking in the kitchen and fell hitting the ground on her right side. son denies head trauma. patient is unable to move right wrist and right leg from current bent position. both injuryed extremities have +2 pulses, patient is able to move toes and all fingers. no other complaint or injury at this time.
[2018-09-21] MEDS ORDERED: MORPHINE 4 MG/ML INJ. SYRINGE IVP ONE (17:00)
[2018-09-21] MEDS ORDERED: ONDANSETRON HCL 4 MG/2 ML VIAL IVP ONE (17:00)
[2018-09-21 17:19] LABS: BASOPHILS % (AUTO) 0.8 % (0.0-2.0); EOSINOPHILS % (AUTO) 0.5 % (0.0-4.0); HEMATOCRIT 34.2 % (36-48); HEMOGLOBIN 11.7 g/dL (12.0-16.0); LYMPHOCYTES # (AUTO) 0.7 K/uL (1.0-5.5); LYMPHOCYTES % (AUTO) 18.3 % (20.5-51.5); MEAN CORPUSCULAR HEMOGLOBIN 32 pg (27-31); MEAN CORPUSCULAR HGB CONC 34 % (32-36); MEAN CORPUSCULAR VOLUME 93 fL (79.0-98.0); MONOCYTES # (AUTO) 0.3 K/uL (0.0-1.0); MONOCYTES % (AUTO) 8.5 % (1.7-9.3); NEUTROPHILS # (AUTO) 2.8 K/uL (1.8-7.7); NEUTROPHILS % (AUTO) 71.9 % (40.0-70.0); PLATELET COUNT (AUTO) 244 K/uL (130-430); RED BLOOD CELL COUNT(AUTO) 3.66 MIL/uL (4.2-6.2); RED CELL DISTRIBUTION WIDTH 16.5 % (9.0-15.0); WHITE BLOOD COUNT (AUTO) 3.9 K/uL (4.8-10.8)
[2018-09-21 17:29] LABS: ANION GAP 6 (5-15); CALCIUM 8.9 mg/dL (8.4-11.0); CHLORIDE 105 mmol/L (98-107); CREATININE 0.33 mg/dL (0.55-1.30); GLUCOSE 150 mg/dL (70-99); POTASSIUM 3.2 mmol/L (3.5-5.1); SODIUM SERUM 134 mmol/L (136-145); UREA NITROGEN, BLOOD 19 mg/dL (8-21)
[2018-09-21 17:31] LABS: INR 1.1 (0.8-1.2); PROTHROMBIN TIME 10.8 SECS (9.5-12.5)
[2018-09-21 17:33] LABS: ALANINE AMINOTRANSFERASE 17 U/L (12-78); ALBUMIN 2.4 g/dL (3.4-4.8); ASPARTATE AMINOTRANSFERASE 20 U/L (10-37); TOTAL BILIRUBIN 0.4 mg/dL (0.0-1.0)
[2018-09-21] MEDS ORDERED: MORPHINE 2 MG/ML INJ. SYRINGE IVP ONE (17:45)
[2018-09-21] MEDS ORDERED: MORPHINE 4 MG/ML INJ. SYRINGE ONE (17:54)
[2018-09-21 17:58] LABS: BILIRUBIN,URINE NEGATIVE (NEGATIVE); BLOOD, URINE NEGATIVE (NEGATIVE); CLARITY/URINE CLEAR (CLEAR); COLOR,URINE YELLOW (YELLOW); GLUCOSE,URINE TRACE (NEGATIVE); KETONES,URINE TRACE (NEGATIVE); LEUKOCYTE ESTERASE ,URINE NEGATIVE (NEGATIVE); NITRITE, URINE NEGATIVE (NEGATIVE); PH,URINE 6.5 (5.0-8.0); PROTEIN URINE 1+ (NEGATIVE)
[2018-09-21] MEDS ORDERED: NACL 0.9% 1,000 ML IV ONE (18:00)
[2018-09-21 18:03] LABS: BACTERIA,URINE MODERATE /HPF (None Seen)
[2018-09-21 18:04] LABS: MUCUS,URINE 3+ /LPF (None Seen)
--- NOTE | 2018-09-21 18:32 | NUR ---
Patient will be admitted to care of MD Shaunna. Admitted to Telemetry unit. Will go to room 121-a. Belongings list completed. Summary report printed. Report will be given at bedside.
--- NOTE | 2018-09-21 18:43 | NUR ---
ADMISSION NOTE Received patient from ER via damir, received report from ULCERO MEJIA. Patient admitted with diagnosis of RIGHT FEMUR FRACTURE/RIGHT WRIST FRACTURE. Patient oriented to hospital routine, call light, toileting and safety-patient verbalized understanding.
[2018-09-21 19:05] VITALS: BP_SYST 133
--- NOTE | 2018-09-21 19:16 | NUR ---
endorced medication recon to PM telemetry nurse. jeffrey
--- NOTE | 2018-09-21 19:40 | NUR ---
Initial Note Received patient awake, alert, oriented to name and place but forgetful and confused at times. Vomiting with yellow colored emesis about 100 ml. HOB elevate for now. Right arm splint in place. NPO. Ecchymoses noted on BUE and BLE. Skin intact and no peripheral edema noted. Continent, will offer bedpan. No SOB noted. Complain of sick on her stomach and pain when turning. Needs attended. Call light within reach. Care and monitoring will be provided per protocol. Bed alarm on and at lowest position at all times. NSR on a monitor.
[2018-09-21 20:00] VITALS: BP_SYST 147
--- NOTE | 2018-09-21 20:40 | NUR ---
Dr. Buddy dee arrived and saw the patient. Made MD aware that patient is vomiting since she came here. Will await for orders.
[2018-09-21] MEDS ORDERED: ONDANSETRON HCL 4 MG/2 ML VIAL IVP PRN (20:45)
[2018-09-21] MEDS ORDERED: KCL 20 mEq in 100 mL (PREMIX) 100 ML IV SCH (21:00)
[2018-09-21] MEDS ORDERED: ENOXAPARIN SODIUM 40 MG/0.4 ML SYRINGE SUBCUT SCH (21:00)
--- NOTE | 2018-09-21 21:50 | NUR ---
RN Note Patient removed her right arm splint. Right FA swollen and ecchymoses noted. Put back the splint and covered with ernesto wrap. Covered IV line as well with kerlix. Due meds given via IV, started IVF and medicated for n/v. will continue to monitor. Used bedpan with 2 assists. Kept clean, dry and comfortable.
[2018-09-21] MEDS: D5NS 1,000 ML IV SCH (21:53)
[2018-09-21] MEDS: PANTOPRAZOLE SODIUM 40 MG/VIAL (PROTONIX) IVP SCH (21:54)
[2018-09-21] MEDS: METOCLOPRAMIDE HCL 10 MG/2 ML VIAL IVP PRN (21:58)
--- NOTE | 2018-09-21 23:20 | NUR ---
Consultation Paged Reason for Consultation: right hip fracture, right wrist fracture Was consult called: Y Person who was notified: Teresa Consulting Physician: Aguilar Hawley Sign Maintenance Ordering Physician: Dr. Goodwin
--- NOTE | 2018-09-21 23:30 | NUR ---
RN Note Bedpan given and patient urinated with yellow colored urine. No vomiting at this time. IVF infusing. Heels off bed. Kept clean, dry and comfortable.
--- NOTE | 2018-09-22 01:15 | NUR ---
Pain med Bedpan given as requested. Medicated for right hip pain, will continue to monitor. Kept clean and dry. No complain of n/v a this time.
[2018-09-22] MEDS: KETOROLAC TROMETHAMINE 30 MG VIAL IVP PRN ×3 (01:17→16:16)
--- NOTE | 2018-09-22 02:30 | NUR ---
RN Note Sleeping at this time. No SOB or grimacing noted. IVF infusing.
--- NOTE | 2018-09-22 04:30 | NUR ---
RN Note Given bedpan as requested. Repositioned. Less moaning noted when turned. Kept clean, dry and warm.
--- NOTE | 2018-09-22 06:13 | NUR ---
End Note Afebrile. VS stable. No SOB noted. Medicated for pain once and nausea once all night. Splint on right arm in place. Bedpan offered all night and good urine output. NPO. No BM with me. Neurovascular checks on right extremities and WNL. AM labs today. IVF infusing. Needs attended. Call light within reach. Care and monitoring provided per protocol. Repositioned. Kept warm and comfortable. NSR on monitor. Bleeding precautions observed.
--- NOTE | 2018-09-22 06:47 | NUR ---
Nutrition Update Silas Scale 14 noted. Pt admitted for Right femur fracture, Right wrist fracture Diet: NPO BMI: 21.5 kg/m2 RD to follow per nutrition care standards.
[2018-09-22 07:00] LABS: HEMOGLOBIN 9.8 g/dL (12.0-16.0); RED BLOOD CELL COUNT(AUTO) 3.07 MIL/uL (4.2-6.2); WHITE BLOOD COUNT (AUTO) 6.4 K/uL (4.8-10.8)
[2018-09-22 07:01] LABS: HEMATOCRIT 29.1 % (36-48); MEAN CORPUSCULAR HEMOGLOBIN 32 pg (27-31); MEAN CORPUSCULAR HGB CONC 34 % (32-36); PLATELET COUNT (AUTO) 217 K/uL (130-430); RED CELL DISTRIBUTION WIDTH 16.6 % (9.0-15.0)
[2018-09-22 07:05] LABS: MEAN CORPUSCULAR VOLUME 95 fL (79.0-98.0)
[2018-09-22 07:20] LABS: ANION GAP 5 (5-15); CALCIUM 8.2 mg/dL (8.4-11.0); CHLORIDE 106 mmol/L (98-107); CREATININE 0.47 mg/dL (0.55-1.30); GLUCOSE 182 mg/dL (70-99); POTASSIUM 3.8 mmol/L (3.5-5.1); SODIUM SERUM 137 mmol/L (136-145); UREA NITROGEN, BLOOD 15 mg/dL (8-21)
[2018-09-22 07:37] LABS: NEUTROPHILS % (AUTO) 79.3 % (40.0-70.0)
[2018-09-22 07:38] LABS: ALANINE AMINOTRANSFERASE 17 U/L (12-78); ALBUMIN 2.1 g/dL (3.4-4.8); ASPARTATE AMINOTRANSFERASE 16 U/L (10-37); BASOPHILS % (AUTO) 0.2 % (0.0-2.0); EOSINOPHILS % (AUTO) 0.1 % (0.0-4.0); LYMPHOCYTES # (AUTO) 0.7 K/uL (1.0-5.5); MONOCYTES # (AUTO) 0.6 K/uL (0.0-1.0); MONOCYTES % (AUTO) 9.4 % (1.7-9.3); NEUTROPHILS # (AUTO) 5.1 K/uL (1.8-7.7); TOTAL BILIRUBIN 0.3 mg/dL (0.0-1.0)
[2018-09-22 08:00] VITALS: BP_SYST 117
--- NOTE | 2018-09-22 08:00 | NUR ---
Note Pt calling out for water, pt was informed there is a possibility of having surgery today, so pt needs to be NPO till we receive word from Dr Charles about when surgery will be done. No SOB/resp distress noted at this time. Pt has tele unit attached and intact at this time. IV in left hand intact and patent infusing IVF's well. Pt next to nurses' station for close observation and needs. Call light within reach.
[2018-09-22] MEDS: PANTOPRAZOLE SODIUM 40 MG/VIAL (PROTONIX) IVP SCH ×2 (08:27→20:30)
--- NOTE | 2018-09-22 10:00 | NUR ---
Note Dr Charles called this morning at 0825am and stated surgery will be done tomorrow morning. Dr Ross to be called and medical clearance needs for surgery tomorrow by Dr Ross. Dr Ross was called at 0830am. Dr Charles also requested pt have Carney catheter inserted at this time. Carney catheter was inserted at this time. Dr Ross was on the floor at 10am, notified MD that surgery is scheduled for 09/23 and medical clearance needed for surgery. Pt was given Toradol IVP at 0830am for pain in right hip. Call light within reach.
[2018-09-22] MEDS: ENOXAPARIN SODIUM 40 MG/0.4 ML SYRINGE SQ SCH (11:00)
[2018-09-22 12:00] VITALS: BP_SYST 104
--- NOTE | 2018-09-22 13:00 | NUR ---
Note Dr Charles on the floor at pt's bedside at 1235pm assessing pt and assessing pt for surgery tomorrow. MD went over surgery and pros/cons of surgery. After assessment on pt, MD called pt's son Ry and explained surgery and pros/cons of surgery, questions/concnerns were answered at this time. Pt's son Ry had come to pt's bedside around 11am and sat with pt for a while. [phone]. Pt resting in bed. Pt refused lunch tray - assistance was offered. Pt refused. Call light within reach.
--- NOTE | 2018-09-22 13:20 | NUR ---
Note Pt going to have right hip surgery tomorrow. Dr Charles stated no Lovenox SQ today.
[2018-09-22] MEDS: D5NS 1,000 ML IV SCH (13:23)
--- NOTE | 2018-09-22 13:30 | NUR ---
IV insertion Pt's left hand IV was infiltrated. IV site was swollen and red, too much tape was applied and pt got a skin teat when IV was dc'd. Site was cleaned and dressing applied at this time. New IV inserted in left forearm 22g' and IVF's restarted at this time. Call light within reach.
--- NOTE | 2018-09-22 15:20 | NUR ---
Note Pt's son Rivas at bedside for the last 2 hours - son signed surgery consent for tomorrow and is answering pt's repeated questions/concerns at this time. Pt instructed repeatedly not to pull off tele wires and to pick at IV tubing. Pt sitting up in bed and talking to her son. No needs noted. Call light within reach. No pain/discomfort noted in right hip at this time.
[2018-09-22 16:00] VITALS: BP_SYST 107
[2018-09-22] MEDS: METOCLOPRAMIDE HCL 10 MG/2 ML VIAL IVP PRN (16:16)
--- NOTE | 2018-09-22 16:45 | NUR ---
Note Pt has 5lb [place] traction on right leg and trapeze on bed at this time. Pt has Lovenox SQ put on stop as pt going to surgery tomorrow and Dr Charles wants no blood thinners given before surgery. Pt has request for 2 units typed and crossed for surgery tomorrow. Pt's friend visiting at bedside at this time, has been there for about one hour. Pt was given pain and nausea medication at this time. Call light within reach.
--- NOTE | 2018-09-22 17:00 | NUR ---
QUILES CATH: # 16 FR Quiles catheter inserted with use of sterile technique. Bulb inflated with 10cc sterile water. Immediate return of 300 cc urine noted. Bedside drainage bag placed below level of bladder. Urine sample collected and sent to lab at . Pt tolerated procedure .
--- NOTE | 2018-09-22 18:10 | NUR ---
Note Pt sitting up in bed eating her dinner. Pt's son Ry and friend were at bedside assisting pt with her wants. No SOB/resp distress or severe pain/discomfort noted at this time. IV in left hand intact and patent infusing IVF's well. Pt's right leg in [place] traction and Carney catheter intact and draining well. Tele unit attached and intact. Pt was checked on q1' and PRN all shift for needs and care. Call light within reach.
[2018-09-22 18:31] LABS: BILIRUBIN,URINE NEGATIVE (NEGATIVE); BLOOD, URINE 2+ (NEGATIVE); CLARITY/URINE CLEAR (CLEAR); COLOR,URINE YELLOW (YELLOW); GLUCOSE,URINE NEGATIVE (NEGATIVE); KETONES,URINE NEGATIVE (NEGATIVE); LEUKOCYTE ESTERASE ,URINE TRACE (NEGATIVE); NITRITE, URINE NEGATIVE (NEGATIVE); PROTEIN URINE TRACE (NEGATIVE)
[2018-09-22 18:46] LABS: BACTERIA,URINE FEW /HPF (None Seen); RBC,URINE 20-50 /HPF (0-3)
[2018-09-22 18:47] LABS: MUCUS,URINE None Seen /LPF (None Seen)
[2018-09-22 20:10] VITALS: BP_SYST 125
--- NOTE | 2018-09-22 20:10 | NUR ---
Opening notes/Lewis cath pulled out Pt alert, awake, confused. VSS. Found lewis catheter on the floor. Pt trying to pull out lines/bucks traction from R. leg. Oriented pt place/surroundings. IVF infusing as ordered L. upper arm no s/s infiltration noted secured with gauze. R. arm splint in place. 5lbs [place] traction in place R. leg. Safety measures in place. To monitor.
--- NOTE | 2018-09-22 20:36 | NUR ---
PAGED PAGED DOCTOR COSTA FOR ORDERS
--- NOTE | 2018-09-22 21:00 | NUR ---
Received callback Received call from Dr. Goodwin and informed MD that pt pulled out her lewis and trying to pull other lines. Received order for L. wrist soft restraint. Son Ry came back and per son Ok to do restraints. CRN informed. Will carry out.
--- NOTE | 2018-09-22 21:30 | NUR ---
Lewis cath inserted Pt awake, lewis cath inserted via aseptic technique with CRN assist. Dark yellow urine noted. Securement attached. Pt tolerated fairly. To monitor.
[2018-09-22] MEDS: MORPHINE 4 MG/ML INJ. SYRINGE IVP PRN (21:42)
[2018-09-23 00:15] VITALS: BP_SYST 124
[2018-09-23] MEDS: D5NS 1,000 ML IV SCH ×3 (00:20→23:31)
[2018-09-23] MEDS: KETOROLAC TROMETHAMINE 30 MG VIAL IVP PRN (01:10)
[2018-09-23] MEDS: METOCLOPRAMIDE HCL 10 MG/2 ML VIAL IVP PRN (01:10)
--- NOTE | 2018-09-23 01:20 | NUR ---
Rounds/Pain mgmt Pt awake, confused and restless, removing R. hand splint. Oriented pt to time and place. Medicated pt with Toradol and Reglan as needed for c/o pain R. wrist. Carney cath to gravity. Call light within reach. Bed alarm on. Will continue to monitor pt closely.
[2018-09-23] MEDS: MORPHINE 4 MG/ML INJ. SYRINGE IVP PRN ×2 (03:15→08:48)
--- NOTE | 2018-09-23 03:15 | NUR ---
Pain mgmt/Splint Pt awake, confused and keep removing R. wrist splint. Reinforced splint with gauze and tape. Medicated pt with Morphine 2mg IVP as needed L. arm IV no s/s infiltration noted. Continued to sit outside pt room to monitor pt closely. Bed alarm on. To monitor pt.
--- NOTE | 2018-09-23 03:40 | NUR ---
Refusing splint on Pt awake, yelling to have right hand spint off. Despite explaining to the pt, pt continued to lift up right arm and pull off splint with the restrained hand. Elevated arm on pillow and pt states it's so much better.
--- NOTE | 2018-09-23 04:20 | NUR ---
Pt more calm now, asleep. No s/s distress noted. To monitor.
--- NOTE | 2018-09-23 06:07 | NUR ---
Wound care Pt awake, did not sleep well. No s/s distress. Pt refuses R. arm splint and takes it off. Bruising noted R. arm. Elevated on pillow. L. hand wound cleansed with NS and applied Optifoam dressing. Pt tolerated well.
--- NOTE | 2018-09-23 06:20 | NUR ---
Closing notes Pt awake, confused, calmer. No s/s distress noted. Pt refused R. arm splint and removes it. [place] traction 5lbs in place, neurocheck intact. L. wrist soft restraint on. IVF infusing L. arm 22G no s/s infiltration. Plexi pulses on. Call light within reach. Bed alarm on. outer diameter technician at bedside. To endorse to AM nurse.
[2018-09-23 07:19] LABS: ANION GAP 6 (5-15); CALCIUM 8.5 mg/dL (8.4-11.0); CHLORIDE 105 mmol/L (98-107); CREATININE 0.36 mg/dL (0.55-1.30); GLUCOSE 116 mg/dL (70-99); POTASSIUM 3.1 mmol/L (3.5-5.1); SODIUM SERUM 136 mmol/L (136-145); UREA NITROGEN, BLOOD 11 mg/dL (8-21)
[2018-09-23 07:38] LABS: HEMATOCRIT 25.9 % (36-48); HEMOGLOBIN 8.7 g/dL (12.0-16.0); MEAN CORPUSCULAR HEMOGLOBIN 32 pg (27-31); MEAN CORPUSCULAR HGB CONC 34 % (32-36); MEAN CORPUSCULAR VOLUME 94 fL (79.0-98.0); NEUTROPHILS % (AUTO) 72.2 % (40.0-70.0); PLATELET COUNT (AUTO) 191 K/uL (130-430); RED BLOOD CELL COUNT(AUTO) 2.74 MIL/uL (4.2-6.2); RED CELL DISTRIBUTION WIDTH 16.8 % (9.0-15.0)
[2018-09-23 07:39] LABS: BASOPHILS % (AUTO) 0.2 % (0.0-2.0); EOSINOPHILS % (AUTO) 0.8 % (0.0-4.0); LYMPHOCYTES # (AUTO) 0.6 K/uL (1.0-5.5); LYMPHOCYTES % (AUTO) 15.3 % (20.5-51.5); MONOCYTES # (AUTO) 0.5 K/uL (0.0-1.0); MONOCYTES % (AUTO) 11.5 % (1.7-9.3); NEUTROPHILS # (AUTO) 2.8 K/uL (1.8-7.7)
[2018-09-23 07:45] VITALS: BP_SYST 154
--- NOTE | 2018-09-23 07:45 | NUR ---
INITIAL ROUNDS Received pt AAOx2, very forgetful and demanding. Pt has left soft-wrist restraint due to pt pulling on equipment. Pt has right LE in [place] traction as ordered. Left foot with plexi-pulse in place. Noted pt's right wrist is reddened, swollen and disfigured-note pt removed immobilizer and won't keep in on. Pt NPO for surgery-reminded pt not to eat/drink anything-pt stated "why", pt reminded of surgery today. Pt c/o pain-will check on pain medication & give if due. Side rails up x 3, room across from nursing station for safety. Call light within reach.
[2018-09-23] MEDS: ENOXAPARIN SODIUM 40 MG/0.4 ML SYRINGE SQ SCH (08:39)
[2018-09-23] MEDS: PANTOPRAZOLE SODIUM 40 MG/VIAL (PROTONIX) IVP SCH ×2 (08:46→21:22)
--- NOTE | 2018-09-23 08:50 | NUR ---
is aware of lab result prior to Sx.: Dr. Ross is in ICU. Inform him that patient will have surgery this morning ~11 AM also told him that HH=8.7/25.9, and K=3.1, if he wants to order anything. states is OK do not freak out about that.
--- NOTE | 2018-09-23 10:39 | NUR ---
MD/ROUNDS/TO OR Pt sitting up in bed visiting with her son Ry, no s/s resp distress, no c/o pain or discomfort. Pt with constantly moving her right wrist-pt reminded several times to keep her right wrist elevated on the pillow. Pt seen by Dr. Jose-Anesthesiologist, he discussed with pt and pt's son Ry, consent signed and witnessed. OR tech Cezar here to take pt-informed him of left wrist restraint due to pt removing her Carney and IV last night-he verbalized his understanding. Pt left floor via bed to OR in no distress.
[2018-09-23] MEDS ORDERED: POLYMYXIN 500,000/BACIT.10,000 UNITS in NS IRR 1 L IR ONE (11:30)
[2018-09-23] MEDS ORDERED: LR 1,000 ML IV SCH (13:33)
--- NOTE | 2018-09-23 13:38 | NUR ---
Dietitian Recommendations Advance diet to solid foods when medically appropriate. Refer to nutrition assessment for details. Norberto Coronado MPH, RD
[2018-09-23] MEDS ORDERED: METOCLOPRAMIDE HCL 10 MG/2 ML VIAL IVP PRN (13:45)
[2018-09-23] MEDS ORDERED: MORPHINE 4 MG/ML INJ. SYRINGE IVP PRN ×3 (13:45)
[2018-09-23] MEDS ORDERED: MILK OF MAGNESIA 30 ML UDC PO PRN (14:00)
[2018-09-23 15:00] VITALS: BP_SYST 131
--- NOTE | 2018-09-23 15:00 | NUR ---
PT BACK FROM OR Pt back from OR, received report from PACU nurse, vital signs stable. Noted pt with soft cast to right forearm and clean, dry and intact dressing to right hip. Pt very sleepy, will monitor closely for safety. Fall precautions in place.
[2018-09-23 15:35] VITALS: BP_SYST 116
--- NOTE | 2018-09-23 16:29 | NUR ---
Wound Evaluation: Wound Consult ordered for Low Silas Score. Patient evaluated for a low Silas score of 15. Patient was asleep, drowsy (status post orthopedic surgery), and received in a Dario Bed with an IsoFlex TAI mattress. Patient needs assist to turn in bed. Skin is fair. Recommend encourage and assist patient as needed with repositioning side to side only every 2 hours with pillow wedge pelvic tilt as tolerated. Elevate, off-load and float bilateral heels with pillows. Offload pressure areas with pillows for pressure re-distribution. Perform skin care and monitor skin integrity Q shift. Use moisture barrier cream on moisture susceptible areas QID and PRN for soiling. In assessment: 1. Left dorsal hand: Skin tear. Tear skin flap is approximated, with ecchymosis present. No odor, no drainage. Kristin-tear area intact. Recommend: Cleanse skin tear with normal saline. Pat dry. Cover skin tear with oil emulsion dressing, then nonadhesive foam dressing. Wrap with Gina wrap. Perform skin tear care daily and as needed for dressing soiling or dislodgment.
--- NOTE | 2018-09-23 18:16 | NUR ---
CLOSING NOTE Pt resting quietly with no s/s resp distress, no c/o pain or discomfort. Pt sleepy but easily aroused, pt able to do neurovascular checks and answer questions. paged for diet order-awaiting call back. Needs met, safety precautions remain in place, call light within reach.
--- NOTE | 2018-09-23 19:40 | NUR ---
Opening notes Pt asleep, easily arousable. VSS. No s/s distress noted. R. arm cast intact, pt able to wiggle fingers, 2+ edema noted, warm to touch. R. hip dressing C/D/I, ice packs in place. Pt able to wiggle toes and dorsiflex the foot. [place] plexi pulses on. Pt noted with productive cough. IVF infusing as ordered L arm no s/s infiltration. Call light within reach. Bed alarm on. To monitor.
--- NOTE | 2018-09-23 19:53 | NUR ---
paged paged for Dr Ross, dialed . s/w Amanda.
[2018-09-23 20:00] VITALS: BP_SYST 148
--- NOTE | 2018-09-23 20:30 | NUR ---
Pt son at bedside.
[2018-09-23] MEDS: SENNOSIDES 8.6 MG TABLET PO SCH (21:22)
--- NOTE | 2018-09-23 22:40 | NUR ---
Rounds Pt alert, awake no s/s distress or discomfort noted. Pt's son at bedside. Call light within reach. To monitor.
--- NOTE | 2018-09-24 00:05 | NUR ---
Rounds Pt awake, confused. No s/s distress noted. Neurovascular checks intact. Pt able to slowly wiggle her Right fingers and toes. Warm to touch and good cap refill. Ice packs to right hip provided, dressing C/D/I. Carney cath to gravity. IVF infusing as ordered L. arm no s/s infiltration. Call light within reach. Bed alarm on. To monitor.
[2018-09-24] MEDS: KETOROLAC TROMETHAMINE 30 MG VIAL IVP PRN (00:14)
[2018-09-24] MEDS: METOCLOPRAMIDE HCL 10 MG/2 ML VIAL IVP PRN (00:14)
[2018-09-24 00:36] VITALS: BP_SYST 109
--- NOTE | 2018-09-24 02:30 | NUR ---
Rounds Pt awake, confused, yelling her son's name "Rob". Re-oriented pt to place and time. No s/s distress noted. IVF infusing as ordered L. arm no s/s infiltration noted. [place] plexi pulses on. Carney cath to gravity intact and secured. Bed alarm on. Will continue to monitor pt.
--- NOTE | 2018-09-24 04:34 | NUR ---
Rounds Pt awake, calm. No s/s distress noted. Noticed pt touching lewis cath. Adjust pt's L. wrist restraint. Placed new lewis securement device and educated pt. To monitor.
--- NOTE | 2018-09-24 06:35 | NUR ---
Closing notes Pt awake, calm, no c/o pain at this time. IVF infusing as ordered L.FA no s/s infiltration secured with gauze. R. arm cast on, neurovasc intact. R. hip dressign C/D/I. [place] plexipulses on. Repositioned. Call light within reach. Bed alarm on. To endorse to dayshift nurse.
[2018-09-24 07:20] LABS: HEMATOCRIT 29.8 % (36-48); MEAN CORPUSCULAR HEMOGLOBIN 31 pg (27-31); MEAN CORPUSCULAR HGB CONC 34 % (32-36); MEAN CORPUSCULAR VOLUME 93 fL (79.0-98.0); NEUTROPHILS % (AUTO) 74.2 % (40.0-70.0); PLATELET COUNT (AUTO) 186 K/uL (130-430); RED BLOOD CELL COUNT(AUTO) 3.21 MIL/uL (4.2-6.2); RED CELL DISTRIBUTION WIDTH 16.2 % (9.0-15.0); WHITE BLOOD COUNT (AUTO) 5.4 K/uL (4.8-10.8)
[2018-09-24 07:21] LABS: BASOPHILS % (AUTO) 0.3 % (0.0-2.0); EOSINOPHILS % (AUTO) 0.4 % (0.0-4.0); LYMPHOCYTES # (AUTO) 0.8 K/uL (1.0-5.5); LYMPHOCYTES % (AUTO) 15.6 % (20.5-51.5); MONOCYTES # (AUTO) 0.5 K/uL (0.0-1.0); MONOCYTES % (AUTO) 9.5 % (1.7-9.3)
[2018-09-24 07:28] LABS: ANION GAP 4 (5-15); CALCIUM 8.4 mg/dL (8.4-11.0); CHLORIDE 103 mmol/L (98-107); GLUCOSE 132 mg/dL (70-99); SODIUM SERUM 132 mmol/L (136-145); UREA NITROGEN, BLOOD 8 mg/dL (8-21)
--- NOTE | 2018-09-24 07:33 | NUR ---
confused and forget, response to name only. Soft-wrist restraint noted on the left hand. Left foot with plexi-pulse in place. Cast on the right arm, radial pulses palpable. Side rails up x 3, room across from nursing station for safety. Patient is placed near nursing station. Call light within reach.
[2018-09-24] MEDS: MULTIVITAMINS TAB 1 TABLET PO SCH (07:55)
[2018-09-24] MEDS: ASCORBIC ACID 500 MG TABLET PO SCH ×2 (07:55→21:06)
[2018-09-24] MEDS: ENOXAPARIN SODIUM 40 MG/0.4 ML SYRINGE SUBCUT SCH (07:55)
[2018-09-24 07:56] LABS: POTASSIUM 2.7 mmol/L (3.5-5.1)
[2018-09-24] MEDS: FERROUS SULFATE 140 MG TABLET.ER PO SCH (07:56)
[2018-09-24] MEDS: PANTOPRAZOLE SODIUM 40 MG/VIAL (PROTONIX) IVP SCH ×2 (07:57→21:06)
--- NOTE | 2018-09-24 08:17 | NUR ---
ATTENDING MD DR COLLIER WAS CALLED RE: LOW K LEVEL (2.7). SPOKE TO ERIN
--- NOTE | 2018-09-24 09:48 | NUR ---
Patient is placed on the recliner for PT. Will monitor for response.
[2018-09-24] MEDS ORDERED: POTASSIUM CHLORIDE 40 MEQ in NS 250 ML IV ONE (10:00)
--- NOTE | 2018-09-24 12:05 | NUR ---
Patient is placed back in bed, no signs of distress noted.
[2018-09-24] MEDS ORDERED: ALBUTEROL SULFATE 0.083% 2.5 MG/3 ML VIAL.NEB INH PRN (12:30)
[2018-09-24 13:05] VITALS: BP_SYST 110
--- NOTE | 2018-09-24 14:27 | NUR ---
Patient is turned and repositioned for comfort. No signs of distress noted.
--- NOTE | 2018-09-24 15:25 | NUR ---
NOTE Received pt from previous JACKIE Burgos for continuation of care. Agree with previous JACKIE Burgos's am assessment. Pt resting at this time. No needs noted. Call light within reach.
--- NOTE | 2018-09-24 15:37 | NUR ---
DC SNF Planning: Plan for SNF transfer tomorrow, September 25. SNF arrangements: [facility] - Room [address] [place] [address] Transportation arrangements: [facility] on will call Krystina Carrion, KAILYN Implementation Manager [phone]
--- NOTE | 2018-09-24 16:06 | NUR ---
PATIENT CARE IS DELEGATED TO JACKIE CARDONA. ALL NEEDS MET AT THIS TIME.
[2018-09-24] MEDS: D5NS 1,000 ML IV SCH (16:14)
[2018-09-24 16:15] VITALS: BP_SYST 110
--- NOTE | 2018-09-24 17:35 | NUR ---
Note pt sitting up in bed to eat her dinner. Dressing on right hip and right wrist CDI at this time. No SOB/resp distress or severe pain/discomfort noted at this time. Call light within reach.
--- NOTE | 2018-09-24 18:20 | NUR ---
Note Pt was checked on q1' and PRN since 1529, for needs and care all shift for needs and care. No SOB/resp distress or pain/discomfort noted at this time. No needs noted. Call light within reach.
[2018-09-24 19:45] VITALS: BP_SYST 112
--- NOTE | 2018-09-24 19:45 | NUR ---
INITIAL NOTE AT INITIAL ASSESSMENT, PATIENT IS RESTING IN BED, STABLE, NO SIGNS OF RESPIRATORY DISTRESS. PATIENT VERBALIZES NO PAIN. SON MAXIMILIANO IS AT BEDSIDE. PLAN OF CARE IS COMMUNICATED WITH THE PATIENT AND HER SON. CALL LIGHT- TEACH BACK IS SUCCESSFUL. BED IS LOCKED, ALARMED, AND AT THE LOWEST LEVEL. FALL AND SAFETY PRECAUTIONS WILL BE IN PLACE THROUGHOUT THE SHIFT.
--- NOTE | 2018-09-24 19:45 | NUR ---
PATIENT DISCHARGED [facility] are discharging patient at this time via gurney. Patient given medication reconciliation form and D/C instructions. Exit Care provided. Family verbalized understanding. MD discussed with patient the results and treatment provided. Patient in stable condition, ID band removed. All belongings sent with patient. Addendum: 09/24/18 at 1949 by Dayan Yu RN NOTE INTENDED FOR DIFFERENT PATIENT!
--- NOTE | 2018-09-24 19:51 | NUR ---
Changed DC SNF Planning: Per son Prieto, no transfer to [facility]. Per son, "anywhere but [facility]." [facility] informed. Previous transfer arrangements cancelled. SNF referral sent to other HCP contracted SNFs: [facility] [place] [facility] [place] Covering CM Alyse Holcomb [phone] to follow up tomorrow for accepting SNF and arrange transportation. Krystina Carrion, HCP [employer] [phone]
[2018-09-24] MEDS: SENNOSIDES 8.6 MG TABLET PO SCH (21:06)
--- NOTE | 2018-09-24 21:43 | NUR ---
INCENTIVE SPIROMETER TEACHING NOTE PATIENT EDUCATED ON INCENTIVE SPIROMETER AT THIS TIME. PATIENT HAD MINIMAL SUCCESS SINCE SHE IS CONFUSED. HER OXYGEN SATURATION AT THIS TIME IS WNL WITH ROOM AIR. PATIENT IS RESTING IN BED, STABLE, NO SIGNS OF RESPIRATORY DISTRESS. CALL LIGHT WITHIN REACH. BED IS LOCKED, ALARMED, AND AT THE LOWEST LEVEL.
[2018-09-24 23:36] VITALS: BP_SYST 113
--- NOTE | 2018-09-24 23:41 | NUR ---
NEW IV PATIENT IV IS NOTED TO BE INFILTRATED. HER IV IS D/C, TIP INTACT, NO SIGNS OF ACTIVE BLEED. NEW IV IS PLACED ON LEFT FOREARM, 24 GAUGE. 10 MLS NS FLUSHED WITH NO RESISTANCE. PATIENT TOLERATED WELL.
[2018-09-25] MEDS: MORPHINE 4 MG/ML INJ. SYRINGE IVP PRN (00:55)
--- NOTE | 2018-09-25 00:59 | NUR ---
PAIN/MORPHINE GIVEN Patient is c/o severe "10/10" pain to right hip. Morphine was administered as ordered PRN for severe pain. See EMAR for details. Educated pt. regarding medication and potential side effects. Verabalized understanding. Primary nurse, JACKIE Siegel also made aware regarding administration and to reassess pain.
--- NOTE | 2018-09-25 02:50 | NUR ---
NOTE PATIENT IS SLEEPING, STABLE, NO SIGNS OF RESPIRATORY DISTRESS. CALL LIGHT WITHIN REACH. BED IS LOCKED, ALARMED, AND AT THE LOWEST LEVEL.
[2018-09-25] MEDS: D5NS 1,000 ML IV SCH ×2 (04:35→05:27)
--- NOTE | 2018-09-25 04:37 | NUR ---
NOTE PATIENT IS SLEEPING, STABLE, NO SIGNS OF RESPIRATORY DISTRESS. CALL LIGHT WITHIN REACH. BED IS LOCKED, ALARMED, AND AT THE LOWEST LEVEL.
--- NOTE | 2018-09-25 05:15 | NUR ---
NOTE PATIENT IS RESTING IN BED, STABLE, NO SIGNS OF RESPIRATORY DISTRESS. CALL LIGHT WITHIN REACH. BED IS LOCKED, ALARMED, AND AT THE LOWEST LEVEL.
--- NOTE | 2018-09-25 06:40 | NUR ---
RIGHT HIP DRESSING CHANGED Patient's right hip surgical dressing was changed as ordered by Dr. Mahan. 16 kathie total were counted. Patient tolerated well. Primary nurse, JACKIE Siegel also aware.
--- NOTE | 2018-09-25 06:48 | NUR ---
CLOSING NOTE PATIENT IS RESTING IN BED, STABLE, NO SIGNS OF RESPIRATORY DISTRESS. PATIENT VERBALIZES NO PAIN AT THIS TIME. CALL LIGHT WITHIN REACH. BED IS LOCKED, ALARMED, AND AT THE LOWEST LEVEL. FALL AND SAFETY PRECAUTIONS HAVE BEEN IN PLACE THROUGHOUT THE SHIFT. WILL CONTINUE TO MONITOR UNTIL SHIFT REPORT IS GIVEN AT BEDSIDE TO AM NURSE.
[2018-09-25 07:54] VITALS: BP_SYST 110
[2018-09-25] MEDS: ENOXAPARIN SODIUM 40 MG/0.4 ML SYRINGE SUBCUT SCH (09:07)
[2018-09-25] MEDS: MULTIVITAMINS TAB 1 TABLET PO SCH (09:07)
[2018-09-25] MEDS: FERROUS SULFATE 140 MG TABLET.ER PO SCH (09:07)
[2018-09-25] MEDS: ASCORBIC ACID 500 MG TABLET PO SCH (09:07)
[2018-09-25 09:29] LABS: HEMOGLOBIN 7.1 g/dL (12.0-16.0); RED BLOOD CELL COUNT(AUTO) 2.25 MIL/uL (4.2-6.2); WHITE BLOOD COUNT (AUTO) 2.8 K/uL (4.8-10.8)
--- NOTE | 2018-09-25 09:30 | NUR ---
Mobility Non weight bearing to right leg,right arm , total assist to bedside commode by the physical therapy, patient weak/fragile, tolerates well with our pain medication sit for 15 minutes then back to bed, TSB given no pressure sore, generalized trace edema whole body, bilateral arm +2 , discoloration upper arm, cast intact kept elevated to pillow , right hip dressing intact with kathie, no redness, fall safety, skin precaution initiated.
[2018-09-25 09:33] LABS: MEAN CORPUSCULAR HEMOGLOBIN 31 pg (27-31); MEAN CORPUSCULAR HGB CONC 33 % (32-36); MEAN CORPUSCULAR VOLUME 97 fL (79.0-98.0); PLATELET COUNT (AUTO) 146 K/uL (130-430); RED CELL DISTRIBUTION WIDTH 16.7 % (9.0-15.0)
[2018-09-25 09:34] LABS: BASOPHILS % (AUTO) 0.3 % (0.0-2.0); EOSINOPHILS % (AUTO) 3.4 % (0.0-4.0); LYMPHOCYTES # (AUTO) 0.5 K/uL (1.0-5.5); LYMPHOCYTES % (AUTO) 18.9 % (20.5-51.5); MONOCYTES % (AUTO) 9.2 % (1.7-9.3); NEUTROPHILS # (AUTO) 1.9 K/uL (1.8-7.7); NEUTROPHILS % (AUTO) 68.2 % (40.0-70.0)
[2018-09-25 09:35] LABS: EOSINOPHILS # (AUTO) 0.1 K/uL (0.0-0.4); MONOCYTES # (AUTO) 0.3 K/uL (0.0-1.0)
--- NOTE | 2018-09-25 10:00 | NUR ---
LEFT MESSAGE TO HEAT CURER TO FOLLOW UP BED LEFT MESSAGE TO NOLA CEBALLOS, CRISIS NURSE HEAT CURER RE- SNF TRANSFER.
[2018-09-25 10:05] LABS: HEMATOCRIT 21.7 % (36-48)
--- NOTE | 2018-09-25 10:12 | NUR ---
Vandana Rivera DR for critical lab result Addendum: 09/25/18 at 1023 by Michelle Rothman RN Spoke to Dr. COLLIER informed regarding lab result with order to transfuse 1 PRBC then D/C to SNF if stable.
--- NOTE | 2018-09-25 10:19 | NUR ---
ATTENDING MD DR COLLIER WAS CALLED RE: CRITICAL H AND H (7.1). SPOKE TO ARISTIDES.
[2018-09-25] MEDS ORDERED: SEVOFLURANE 15 MIN GAS INH ONE (10:45)
[2018-09-25] MEDS ORDERED: fentaNYL CITRATE 250 MCG/5 ML AMP IV ONE (10:45)
[2018-09-25] MEDS ORDERED: BRIMONIDINE TARTRATE 0.2% 5 mL EYE DROPS OP ONE (10:45)
[2018-09-25] MEDS ORDERED: PROPOFOL 200MG/ 20ML VIAL (DIPRIVAN) IV ONE (10:45)
[2018-09-25] MEDS ORDERED: MIDAZOLAM HCL 5 MG/5 ML VIAL IVP ONE (10:45)
[2018-09-25] MEDS ORDERED: CEFAZOLIN 1 GM IVPB PREMIX 50 ML IV ONE (10:45)
[2018-09-25] MEDS ORDERED: LR 1,000 ML IV.SOLN IV ONE (10:45)
[2018-09-25] MEDS ORDERED: ROCURONIUM BROMIDE 10 MG/ML (ZEMURON) IV ONE (10:45)
[2018-09-25] MEDS ORDERED: ONDANSETRON HCL 4 MG/2 ML VIAL IVP ONE (10:45)
[2018-09-25 11:31] VITALS: BP_SYST 143
--- NOTE | 2018-09-25 11:31 | NUR ---
ATTENDING MD DR COLLIER WAS CALLED AGAIN, RE: FOR IV ACCESS EITHER MID OR PIC LINE. SPOKE TO ELISSA.
--- NOTE | 2018-09-25 11:31 | NUR ---
Paged DR. Ross no IV access Failed to get an IV access for blood transfusion , tried 5x by 4 nurses including ER.
--- NOTE | 2018-09-25 12:18 | NUR ---
DR COLLIER CALLED BACK RE- NO IV ACCESS DR COLLIER MADE AWARE THAT PT HAS POOR VENOUS ACCESS AND UNABLE TO RE INSERT A NEW IV LINE, AND IF WE CAN GET AN ORDER OF MIDDLINE PLACEMENT FOR BLOOD TRANSFUSION. V/S STABLE, DR COLLIER ORDERED TO TRANSFER PT TO SNF SINCE V/S STABLE, NO NEED FOR BLOOD TRANSFUSION.
--- NOTE | 2018-09-25 13:54 | NUR ---
Rounds Patient awake/alert/confused want to go home, explained the its not safe due post surgery unable to walked with the physical therapy , safety/fall precaution initiated
--- NOTE | 2018-09-25 13:57 | NUR ---
Explained lewis catheter removal and agreed ,Lewis catheter removed , perineal care given.
--- NOTE | 2018-09-25 15:06 | NUR ---
Patient able to urinate after removal of lewis catheter, no dysuria , perineal care given
--- NOTE | 2018-09-25 15:37 | NUR ---
Spoke to Prieto the son , for possible discharge to SNF, and said he visited 2 SNF that they give and they dnt like it , and agreed now to go to [facility] whenever the bed is available.
--- NOTE | 2018-09-25 15:48 | NUR ---
Paged Dr. WILCOX for clearance for discharge. Addendum: 09/25/18 at 1555 by Michelle Rothman RN Spoke with DR. Banda rn provider relations for from standpoint or orthopedic view stable to transfer for REHAB.
--- NOTE | 2018-09-25 15:56 | NUR ---
HCP CM ELECTRIC MOTOR REPAIRING SUPERVISOR NOLA CEBALLOS WAS CALLED, RE: TO INFORM THAT THE SON/FAMILYAGREED TO RETURN TO [facility]. I WAS NOT ABLE TO GET HOLD OF THE HEALTH AND SAFETY INSTRUCTOR SO I TEXTED HER ON HER CELL. AWAITING FOR A CALL BACK.
[2018-09-25 16:21] VITALS: BP_SYST 142
--- NOTE | 2018-09-25 16:32 | NUR ---
CALLED [facility] TO CHECK THE AVAILABILITY OF RM. I WAS GIVEN 108 A . INFORMED JACKIE CAZARES TO GIVE REPORT. BOOK WITH [facility] TO TAKE PT TO [facility]. PUTTY AND CAULKING SUPERVISOR TIME IS 1899. SPOKE TO TOÑA
--- NOTE | 2018-09-25 16:34 | NUR ---
ATTENDING MD DR COLLIER WAS CALLED RE: A DOSE OF ORAL PAIN MED. SPOKE TO ELISSA
[2018-09-25 16:36] VITALS: BP_SYST 140
[2018-09-25] MEDS ORDERED: HYDROcodone/ACETAMIN 5-325 MG TAB (NORCO/ VICODIN) PO ONE (16:45)
--- NOTE | 2018-09-25 18:39 | NUR ---
Report was given to Vivek Quigley with all the information including pain medication given., filler picker time arranged for 7 pm [facility] by Betty.
--- NOTE | 2018-09-25 19:20 | NUR ---
REPORT GIVEN TO [facility] 1 EMT BY DAY SHIFT JACKIE CAZARES, TRANSFER PACKET HANDED TO EMT
--- NOTE | 2018-09-25 19:24 | NUR ---
PT TRANSFERRED VIA LEELA @[phone]
== END 2018-09-25 19:25 | DRG 480 ==
LOC: SED 16:23 → STU 17:32 → SMU 09-23 16:50
PROVIDERS: ADMIT Internal Medicine Hospice and Palliative Medicine; ATTEND Internal Medicine Hospice and Palliative Medicine
PROC: 30233N1 Transfusion of Nonautologous Red Blood Cells into Peripheral Vein, Percutaneous Approach (ICD-10-PCS; principal; 2018-09-23 11:00)
PROC: 0QS634Z Reposition Right Upper Femur with Internal Fixation Device, Percutaneous Approach (ICD-10-PCS; 2018-09-24)
PROC: 0PSH34Z Reposition Right Radius with Internal Fixation Device, Percutaneous Approach (ICD-10-PCS; 2018-09-24)
DX: S52.501A Unspecified fracture of the lower end of right radius, initial encounter for closed fracture (principal); S72.141A Displaced intertrochanteric fracture of right femur, initial encounter for closed fracture; E87.6 Hypokalemia; M81.0 Age-related osteoporosis without current pathological fracture; I10 Essential (primary) hypertension; E11.9 Type 2 diabetes mellitus without complications; W01.0XXA Fall on same level from slipping, tripping and stumbling without subsequent striking against object, initial encounter; E03.9 Hypothyroidism, unspecified; F03.90 Unspecified dementia, unspecified severity, without behavioral disturbance, psychotic disturbance, mood disturbance, and anxiety; J45.909 Unspecified asthma, uncomplicated; Z88.8 Allergy status to other drugs, medicaments and biological substances; Y93.89 Activity, other specified; Z90.49 Acquired absence of other specified parts of digestive tract; Y92.89 Other specified places as the place of occurrence of the external cause; Y99.8 Other external cause status
CPT/HCPCS: 36415; 71045; 72170-TC; 76000; 80048; 80053; 81000-TC; 82550-TC; 84484; 85025; 85610-TC; 85730-TC; 86886; 86900; 86901; 86920; 87081; 87086; 87186-TC; 93005; 94640; 96361; 96374; 96375; 97110-GP; 97116-GP; 97530-GP; 99285; C1713; C1769; C9113; G0378; J0690; J1650; J1885; J2250; J2270; J2405; J2704; J2765; J3010; J3480; J7042; J7050; J7120; J7613; P9021

== ENCOUNTER 2018-09-27 20:15 | Emergency (ER) | payer OTHER ==
[~2018-09-27] VITALS: Ht 152.4 cm; Wt 63.5 kg
[~2018-09-27 20:15] MED LIST changes: -LEVO250T2 PO; -ONDA4TAB5 PO
[2018-09-27 21:03] VITALS: BP_SYST 95
--- NOTE | 2018-09-27 21:03 | NUR ---
2102 - Patient to ER bed 5 to gown for evaluation. Side rails up.
--- NOTE | 2018-09-27 21:03 | NUR ---
2102 - Pt biba from [facility]. Called and spoke to Magali RN at [facility] who states that pt was screaming in pain earlier today, was given tramadol at 1529, at 1700 pt was noted to have swelling and discoloration to the skin above cast on right forearm. Pt had a fall last week. Per facility, pt's baseline is A&Ox1. At this time, pt is difficult to arouse, requires repeated tactile stimuli. Awaiting MD sawyer.
--- NOTE | 2018-09-27 21:25 | NUR ---
2125 - Pt awake, states pain to right arm. aware.
--- NOTE | 2018-09-27 21:31 | NUR ---
2131 - ER at bedside examining patient.
[2018-09-27] MEDS ORDERED: NACL 0.9% 1,000 ML IV ONE (21:32)
[2018-09-27] MEDS ORDERED: TRAM50TA2 PO (21:44)
[2018-09-27] MEDS ORDERED: LOVI40 SQ (21:44)
[2018-09-27] MEDS ORDERED: ALBU2.5V7 INH (21:44)
[2018-09-27] MEDS ORDERED: FLUT1DIS IH (21:44)
[2018-09-27] MEDS ORDERED: FERR140T2 PO (21:44)
[2018-09-27] MEDS ORDERED: ALBMDI INH (21:44)
[2018-09-27] MEDS ORDERED: ACET-2165 PO (21:44)
[2018-09-27] MEDS ORDERED: LORA-258 PO (21:44)
[2018-09-27] MEDS ORDERED: DOCU-144 PO (21:44)
[2018-09-27] MEDS ORDERED: ASCO500T20 PO (21:44)
[2018-09-27] MEDS ORDERED: BISA-79 PO (21:44)
[2018-09-27] MEDS ORDERED: LEVO100T9 PO (21:44)
[2018-09-27] MEDS ORDERED: LACT10SO6 PO (21:44)
[2018-09-27] MEDS ORDERED: MORPHINE 4 MG/ML INJ. SYRINGE IVP ONE (21:45)
[2018-09-27] MEDS ORDERED: DIPHENHYDRAMINE INJ 50 MG/ML VIAL IVP ONE (21:45)
[2018-09-27 22:31] LABS: ALANINE AMINOTRANSFERASE 18 U/L (12-78); ALBUMIN 1.7 g/dL (3.4-4.8); ANION GAP 13 (5-15); ASPARTATE AMINOTRANSFERASE 24 U/L (10-37); CALCIUM 9.1 mg/dL (8.4-11.0); CHLORIDE 97 mmol/L (98-107); CREATININE 0.25 mg/dL (0.55-1.30); POTASSIUM 3.2 mmol/L (3.5-5.1); SODIUM SERUM 126 mmol/L (136-145); TOTAL BILIRUBIN 1.5 mg/dL (0.0-1.0); UREA NITROGEN, BLOOD 11 mg/dL (8-21)
[2018-09-27 22:32] LABS: HEMATOCRIT 34.5 % (36-48); HEMOGLOBIN 11.5 g/dL (12.0-16.0); MEAN CORPUSCULAR HEMOGLOBIN 32 pg (27-31); MEAN CORPUSCULAR HGB CONC 33 % (32-36); MEAN CORPUSCULAR VOLUME 95 fL (79.0-98.0); RED BLOOD CELL COUNT(AUTO) 3.63 MIL/uL (4.2-6.2); WHITE BLOOD COUNT (AUTO) 7.2 K/uL (4.8-10.8)
[2018-09-27 22:33] LABS: BASOPHILS % (AUTO) 0.5 % (0.0-2.0); EOSINOPHILS # (AUTO) 0.1 K/uL (0.0-0.4); EOSINOPHILS % (AUTO) 0.7 % (0.0-4.0); GLUCOSE 46 mg/dL (70-99); LYMPHOCYTES # (AUTO) 1.5 K/uL (1.0-5.5); LYMPHOCYTES % (AUTO) 20.5 % (20.5-51.5); MONOCYTES # (AUTO) 0.5 K/uL (0.0-1.0); MONOCYTES % (AUTO) 7.6 % (1.7-9.3); NEUTROPHILS # (AUTO) 5.1 K/uL (1.8-7.7); NEUTROPHILS % (AUTO) 70.7 % (40.0-70.0); PLATELET COUNT (AUTO) 370 K/uL (130-430); RED CELL DISTRIBUTION WIDTH 16.6 % (9.0-15.0)
[2018-09-27] MEDS ORDERED: DEXTROSE 50% JECT 50 ML DISP.SYRIN IVP ONE ×2 (22:45→23:00)
--- NOTE | 2018-09-27 23:05 | NUR ---
2305 - Pt medicated for pain, low blood glucose, and IV fluids infusing. Awaiting xray.
[2018-09-28 00:15] LABS: BILIRUBIN,URINE 1+ (NEGATIVE); BLOOD, URINE NEGATIVE (NEGATIVE); CLARITY/URINE CLEAR (CLEAR); COLOR,URINE YELLOW (YELLOW); GLUCOSE,URINE NEGATIVE (NEGATIVE); KETONES,URINE 3+ (NEGATIVE); LEUKOCYTE ESTERASE ,URINE NEGATIVE (NEGATIVE); NITRITE, URINE NEGATIVE (NEGATIVE); PROTEIN URINE TRACE (NEGATIVE)
[2018-09-28 00:26] LABS: BACTERIA,URINE MODERATE /HPF (None Seen); HYALINE CASTS, URINE 0-10 /LPF (None Seen); RBC,URINE 0-3 /HPF (0-3); WBC,URINE 0-3 /HPF (0-3)
--- NOTE | 2018-09-28 00:30 | NUR ---
0030 - Pt's son updated at bedside of pt's condition. Gave phone number to be contacted for any needs. [phone]
--- NOTE | 2018-09-28 02:00 | NUR ---
0200 - Pt resting comfortably w/ eyes closed, aroused to tactile and verbal stimuli. Vss. Will continue to monitor. IV fluids infusing.
--- NOTE | 2018-09-28 03:30 | NUR ---
0330 - Pt to be discharged, bottle house quality control technician to set up transport. Pt cont to rest comfortably on gurney w/ eyes closed, aroused to tactile and verbal stimuli. Vss. Resp even and unlabored.
--- NOTE | 2018-09-28 04:30 | NUR ---
0440 - Transport at bedside to take pt back to [facility]. Pt aroused to tactile stimuli, c/o pain when moved. Pt reoriented and re-educated about previous injury. Vss. Resp even and unlabored. Attempted to call [facility], no answer.
[2018-09-28 04:40] VITALS: BP_SYST 99
--- NOTE | 2018-09-28 04:40 | NUR ---
0440 - Patient given written and verbal discharge instructions and verbalizes understanding. ER MD discussed with patient the results and treatment provided. Patient in stable condition. ID arm band removed. Patient educated on pain management and to follow up with PMD. Pain Scale 3/flacc. Opportunity for questions provided and answered. Medication side effect fact sheet provided. Taken via BLS ambulance back to [facility].
--- NOTE | 2018-09-28 04:44 | NUR ---
0444 - Pt currently with EMS en route to [facility]. Another attempt was made to contact facility and no answer.
--- NOTE | 2018-09-28 04:45 | NUR ---
0445 - Pt's son Ry contacted and informed of pt discharge.
== END 2018-09-28 04:40 | disposition home or self-care (01) ==
LOC: SED 20:15
DX: S32.9XXA Fracture of unspecified parts of lumbosacral spine and pelvis, initial encounter for closed fracture (principal); S72.001A Fracture of unspecified part of neck of right femur, initial encounter for closed fracture; E11.649 Type 2 diabetes mellitus with hypoglycemia without coma; J45.909 Unspecified asthma, uncomplicated; E03.9 Hypothyroidism, unspecified; I10 Essential (primary) hypertension; F03.90 Unspecified dementia, unspecified severity, without behavioral disturbance, psychotic disturbance, mood disturbance, and anxiety; Z90.49 Acquired absence of other specified parts of digestive tract; Z88.8 Allergy status to other drugs, medicaments and biological substances; Z79.899 Other long term (current) drug therapy; W19.XXXA Unspecified fall, initial encounter; Y93.89 Activity, other specified; Y92.89 Other specified places as the place of occurrence of the external cause; Y99.8 Other external cause status
CPT/HCPCS: 36415; 72170; 72192; 73502; 80053; 81000; 82962; 85025; 87086; 96361; 96374; 96375; 99284; J1200; J2270; J7030

== ENCOUNTER 2018-10-11 16:41 | Inpatient (IN) | payer OTHER ==
[~2018-10-11] VITALS: Ht 147.3 cm; Wt 51.7 kg
[~2018-10-11 16:41] MED LIST changes: +ACET-2165 PO; +ALBMDI INH; +ALBU2.5V7 INH; +ASCO500T20 PO; +BISA-79 PO; +DOCU-144 PO; +FERR140T2 PO; +FLUT1DIS IH; +LORA-258 PO; +LOVI40 SQ; +TRAM50TA2 PO
[2018-10-11 16:47] VITALS: BP_SYST 94
[2018-10-11 17:53] LABS: BILIRUBIN,URINE NEGATIVE (NEGATIVE); BLOOD, URINE 3+ (NEGATIVE); CLARITY/URINE CLOUDY (CLEAR); COLOR,URINE YELLOW (YELLOW); GLUCOSE,URINE NEGATIVE (NEGATIVE); KETONES,URINE 1+ (NEGATIVE); LEUKOCYTE ESTERASE ,URINE 2+ (NEGATIVE); NITRITE, URINE NEGATIVE (NEGATIVE); PROTEIN URINE TRACE (NEGATIVE)
[2018-10-11 18:04] LABS: BACTERIA,URINE MANY /HPF (None Seen); WBC,URINE 20-50 /HPF (0-3)
[2018-10-11 18:24] LABS: ANION GAP 6 (5-15); CALCIUM 8.6 mg/dL (8.4-11.0); CHLORIDE 97 mmol/L (98-107); CREATININE 0.27 mg/dL (0.55-1.30); GLUCOSE 66 mg/dL (70-99); POTASSIUM 3.5 mmol/L (3.5-5.1); SODIUM SERUM 127 mmol/L (136-145); UREA NITROGEN, BLOOD 11 mg/dL (8-21)
[2018-10-11 18:26] LABS: HEMATOCRIT 32.7 % (36-48); LYMPHOCYTES % (AUTO) 11.6 % (20.5-51.5); MEAN CORPUSCULAR HEMOGLOBIN 32 pg (27-31); MEAN CORPUSCULAR HGB CONC 34 % (32-36); MEAN CORPUSCULAR VOLUME 94 fL (79.0-98.0); MONOCYTES % (AUTO) 4.1 % (1.7-9.3); NEUTROPHILS % (AUTO) 83.6 % (40.0-70.0); PLATELET COUNT (AUTO) 464 K/uL (130-430); RED BLOOD CELL COUNT(AUTO) 3.49 MIL/uL (4.2-6.2); RED CELL DISTRIBUTION WIDTH 17.8 % (9.0-15.0)
[2018-10-11 18:27] LABS: BASOPHILS % (AUTO) 0.1 % (0.0-2.0); EOSINOPHILS % (AUTO) 0.6 % (0.0-4.0); LYMPHOCYTES # (AUTO) 0.8 K/uL (1.0-5.5); MONOCYTES # (AUTO) 0.3 K/uL (0.0-1.0); NEUTROPHILS # (AUTO) 5.8 K/uL (1.8-7.7)
[2018-10-11] MEDS ORDERED: cefTRIAXone 1 GM IVPB PREMIX 50 ML IV ONE (18:30)
[2018-10-11 18:35] LABS: ALANINE AMINOTRANSFERASE 28 U/L (12-78); ALBUMIN 1.4 g/dL (3.4-4.8); ASPARTATE AMINOTRANSFERASE 24 U/L (10-37); TOTAL BILIRUBIN 0.8 mg/dL (0.0-1.0)
[2018-10-11] MEDS ORDERED: AZITHROMYCIN 500 MG in NS 250 ML IV ONE (20:00)
[2018-10-11] MEDS ORDERED: AZITHROMYCIN 500 MG/VIAL (ZITHROMAX) IV ONE (20:33)
[2018-10-11] MEDS ORDERED: LACT-225 PO (20:57)
[2018-10-11] MEDS ORDERED: TRAM50TA2 PO (20:57)
[2018-10-11] MEDS ORDERED: SENN8.6T19 PO (20:57)
[2018-10-11] MEDS ORDERED: ACET-2165 PO (20:57)
[2018-10-11] MEDS ORDERED: DONE10TA44 PO (20:57)
[2018-10-11] MEDS ORDERED: MEMA5TAB PO (20:57)
[2018-10-11] MEDS ORDERED: FLUT1DIS3 IH (20:57)
[2018-10-11] MEDS ORDERED: LACT10SO6 PO (20:57)
[2018-10-11 22:17] VITALS: BP_SYST 109
[2018-10-11] MEDS: D5NS 1,000 ML IV SCH (23:01)
[2018-10-12] VITALS (8 sets, daily range): BP systolic 98–125
[2018-10-12] MEDS ORDERED: traMADol HCL HCL 50 MG TABLET (ULTRAM) PO PRN (01:45)
[2018-10-12] MEDS ORDERED: ACETAMINOPHEN 325 MG TABLET PO PRN ×2 (01:45→02:00)
[2018-10-12] MEDS ORDERED: PIPERACILLIN/TAZO 3.375/DEX-IS 50 ML IV SCH (02:00)
[2018-10-12] MEDS ORDERED: ALBUTEROL SULFATE 0.083% 2.5 MG/3 ML VIAL.NEB INH PRN (02:00)
[2018-10-12] MEDS ORDERED: D5W 1,000 ML IV PRN (02:06)
[2018-10-12] MEDS ORDERED: DEXTROSE 50% JECT 50 ML DISP.SYRIN IVP PRN (02:15)
[2018-10-12] MEDS ORDERED: GLUCOSE 15 GM GEL (in 37.5 GM TUBE) PO PRN (02:15)
[2018-10-12] MEDS ORDERED: ONDANSETRON HCL 4 MG/2 ML VIAL IVP SCH (03:00)
[2018-10-12] MEDS ORDERED: PIPERACILLIN/TAZOBACTAM 2.25 GM VIAL IV ONE (04:13)
[2018-10-12] MEDS: ZOSYN (PIPERACILLIN/TAZO) 2.25 GM in DEX-ISO (50ml) IV SCH ×3 (05:24→18:05)
[2018-10-12] MEDS: LEVOTHYROXINE SODIUM 0.1 MG TABLET PO SCH (06:11)
[2018-10-12 07:51] LABS: HEMATOCRIT 31.5 % (36-48); HEMOGLOBIN 10.6 g/dL (12.0-16.0); MEAN CORPUSCULAR HEMOGLOBIN 31 pg (27-31); MEAN CORPUSCULAR HGB CONC 34 % (32-36); MEAN CORPUSCULAR VOLUME 92 fL (79.0-98.0); PLATELET COUNT (AUTO) 511 K/uL (130-430); RED BLOOD CELL COUNT(AUTO) 3.43 MIL/uL (4.2-6.2); RED CELL DISTRIBUTION WIDTH 17.2 % (9.0-15.0); WHITE BLOOD COUNT (AUTO) 5.9 K/uL (4.8-10.8)
[2018-10-12 07:52] LABS: BASOPHILS % (AUTO) 0.2 % (0.0-2.0); EOSINOPHILS % (AUTO) 0.8 % (0.0-4.0); LYMPHOCYTES # (AUTO) 0.6 K/uL (1.0-5.5); LYMPHOCYTES % (AUTO) 10.7 % (20.5-51.5); MONOCYTES # (AUTO) 0.3 K/uL (0.0-1.0); MONOCYTES % (AUTO) 4.5 % (1.7-9.3); NEUTROPHILS % (AUTO) 83.8 % (40.0-70.0)
[2018-10-12 08:07] LABS: ANION GAP 7 (5-15); CALCIUM 8.2 mg/dL (8.4-11.0); CHLORIDE 99 mmol/L (98-107); GLUCOSE 103 mg/dL (70-99); SODIUM SERUM 131 mmol/L (136-145); UREA NITROGEN, BLOOD 10 mg/dL (8-21)
[2018-10-12 08:12] LABS: CREATININE < 0.20 mg/dL (0.55-1.30)
[2018-10-12 08:20] LABS: ALANINE AMINOTRANSFERASE 26 U/L (12-78); ALBUMIN 1.4 g/dL (3.4-4.8); ASPARTATE AMINOTRANSFERASE 19 U/L (10-37); TOTAL BILIRUBIN 0.6 mg/dL (0.0-1.0)
[2018-10-12] MEDS: FERROUS SULFATE 325 MG TABLET.DR PO SCH (08:43)
[2018-10-12] MEDS: MEMANTINE HCL 5 MG TABLET PO SCH (08:43)
[2018-10-12] MEDS ORDERED: FLUTICASONE 250 mCg/SALMETEROL 50 mCg DISKUS W.DEV INH SCH (09:00)
[2018-10-12] MEDS ORDERED: ONDANSETRON HCL 4 MG/2 ML VIAL IM PRN (09:00)
[2018-10-12] MEDS ORDERED: BUDESONIDE 0.5 MG/2 ML AMPUL.NEB INH ONE (11:00)
[2018-10-12] MEDS: D5NS 1,000 ML IV SCH (11:58)
[2018-10-12] MEDS ORDERED: POTASSIUM CHLORIDE 40 MEQ, LIDOCAINE JECT 2% PF 100 MG 50 MG in NS 250 ML IV ONE (12:30)
[2018-10-12] MEDS ORDERED: KCL 20 mEq in 100 mL (PREMIX) 100 ML IV ONE (12:45)
[2018-10-12] MEDS: DONEPEZIL HCL 5 MG TABLET (ARICEPT) PO SCH (20:38)
[2018-10-12] MEDS ORDERED: AZITHROMYCIN 500 MG in NS 250 ML IV SCH (21:00)
[2018-10-13] MEDS: D5NS 1,000 ML IV SCH ×2 (00:18→14:15)
[2018-10-13] MEDS: ZOSYN (PIPERACILLIN/TAZO) 2.25 GM in DEX-ISO (50ml) IV SCH ×4 (00:19→18:00)
[2018-10-13] MEDS: LEVOTHYROXINE SODIUM 0.1 MG TABLET PO SCH (07:00)
[2018-10-13 08:00] VITALS: BP_SYST 110
[2018-10-13] MEDS: MEMANTINE HCL 5 MG TABLET PO SCH (09:00)
[2018-10-13] MEDS: FERROUS SULFATE 325 MG TABLET.DR PO SCH (09:00)
[2018-10-13 12:27] VITALS: BP_SYST 111
[2018-10-13] MEDS: ALBUTEROL SULFATE 0.083% 2.5 MG/3 ML VIAL.NEB INH SCH ×3 (13:00→19:44)
[2018-10-13] MEDS: BUDESONIDE 0.5 MG/2 ML AMPUL.NEB INH SCH ×2 (15:34→19:46)
[2018-10-13 16:05] VITALS: BP_SYST 111
[2018-10-13 16:56] VITALS: BP_SYST 111
[2018-10-13] MEDS: DONEPEZIL HCL 5 MG TABLET (ARICEPT) PO SCH (20:29)
[2018-10-14] MEDS ORDERED: BALSAM PERU/CASTOR OIL 60 GM OINT...G. TP SCH (09:00)
== END 2018-10-13 21:15 | disposition hospice, home (50) | DRG 193 ==
LOC: SED 16:41 → STU 20:02 → SMU 10-12 09:50
PROVIDERS: ADMIT Internal Medicine; ATTEND Internal Medicine
DX: J18.9 Pneumonia, unspecified organism (principal); E43 Unspecified severe protein-calorie malnutrition; J90 Pleural effusion, not elsewhere classified; J44.0 Chronic obstructive pulmonary disease with (acute) lower respiratory infection; R64 Cachexia; E03.9 Hypothyroidism, unspecified; D64.9 Anemia, unspecified; Z79.899 Other long term (current) drug therapy; E16.2 Hypoglycemia, unspecified; F03.90 Unspecified dementia, unspecified severity, without behavioral disturbance, psychotic disturbance, mood disturbance, and anxiety; I10 Essential (primary) hypertension; L89.92 Pressure ulcer of unspecified site, stage 2; E11.9 Type 2 diabetes mellitus without complications; Z87.81 Personal history of (healed) traumatic fracture; Z68.23 Body mass index [BMI] 23.0-23.9, adult; Z88.8 Allergy status to other drugs, medicaments and biological substances
CPT/HCPCS: 36415; 70450-TC; 71045; 80053; 81000-TC; 82962; 83880; 84484; 85025; 87040-TC; 87081; 87086; 87186-TC; 94640; 94760; 96365; 96366; 99285; G0378; J0456; J0696; J2405; J2543; J3480; J7042; J7050; J7060; J7613; J7626